=== PATIENT | female | born 1930 | race Caucasian/White ===

== ENCOUNTER 2018-11-11 07:07 | Inpatient (IN) ==
--- NOTE | 2018-11-11 07:21 | Emergency Department Note ---
Disposition General Adult HPI - General Chief complaint: ED Weakness Stated complaint: doesnt feel good Time Seen by Provider: 11/11/18 07:18 Source: patient Mode of arrival: EMS Nursing Notes Reviewed: Yes Vital Signs Reviewed: Yes - History of Present Illness Onset (ago): day(s) (3) Pain Scale: 0 - Related Data Home Medications Medication Instructions Recorded Confirmed Atenolol [Tenormin] 50 mg PO DAILY 01/01/16 07/13/16 Levothyroxine [Synthroid] 25 mcg PO DAILY 01/01/16 07/13/16 Pravastatin Sodium [Pravachol] 20 mg PO HS 01/01/16 07/13/16 Sitagliptin Phosphate [Januvia] 50 mg PO DAILY 01/01/16 07/13/16 amLODIPine [Norvasc] 5 mg PO DAILY 01/01/16 07/13/16 hydroCHLOROthiazide 25 mg PO DAILY 01/01/16 07/13/16 [Hydrochlorothiazide] Donepezil HCl [Aricept] 5 mg PO BID 07/13/16 07/13/16 traMADol [Ultram] 50 mg PO TID PRN 07/13/16 07/13/16 Januvia 04/17/18 Losartan 04/17/18 Melatonin 04/17/18 Toprol Xl 04/17/18 Previous Rx's Medication Instructions Recorded Omeprazole [PriLOSEC] 40 mg PO BIDAC #60 capsule.dr 07/16/16 Sucralfate [Carafate] 1 gm PO QIDAC #120 tablet 07/16/16 Capsaicin [Zostrix] 56.6 gm TP TID PRN #1 cream..g. 11/27/16 Cetirizine HCl [Zyrtec] 10 mg PO DAILY #5 capsule 11/27/16 Ibuprofen [Motrin] 800 mg PO Q8HR #30 tablet 08/27/17 Tramadol HCl [Ultram] 50 mg PO TID PRN #9 tab 08/27/17 hydrOXYzine pamoate [HydrOXYzine 25 mg PO TID PRN #30 capsule 04/17/18 Pamoate] methylPREDNISolone [Medrol] 4 mg PO TAPER #21 tablet 04/17/18 Allergies Allergy/AdvReac Type Severity Reaction Status Date / Time lisinopril AdvReac Cough Verified 11/09/18 17:07 Past Medical History - Past Medical History Medical history: Reports: diabetes, hypertension Surgical history: Reports: appendectomy, hysterectomy, knee replacement, pacemaker/AICD, other Psychiatric history: Reports: no psych history SMALL ANIMAL CARETAKER history: Reports: no SMALL ANIMAL CARETAKER history - Social History Smoking Status: Never smoker Smokeless Tobacco Status: No Alcohol use: Reports: none Drug use: Reports: none Physical Exam - General General appearance: alert Course Vital Signs Temperature 97.6 F 11/11/18 07:12 Pulse Rate 65 11/11/18 07:12 Respiratory Rate 16 11/11/18 07:12 Blood Pressure 177/80 11/11/18 07:12 O2 Sat by Pulse Oximetry 98 11/11/18 07:12 Temperature 97.6 F 11/11/18 07:12 Pulse Rate 65 11/11/18 07:12 Respiratory Rate 16 11/11/18 07:12 Blood Pressure 177/80 11/11/18 07:12 O2 Sat by Pulse Oximetry 98 11/11/18 07:12 Oxygen Delivery Oxygen Delivery Room Air
--- NOTE | 2018-11-11 07:36 | Emergency Department Note ---
Disposition Clinical Impression: Hyponatremia Failure to thrive Qualifiers: Failure to thrive age range: in adult Qualified Code(s): R62.7 - Adult failure to thrive Disposition: Admitted As Inpatient Condition: Fair Forms: ED Satisfaction Letter General Adult HPI - General Chief complaint: ED Weakness Stated complaint: doesnt feel good Time Seen by Provider: 11/11/18 07:18 Source: patient Mode of arrival: EMS - History of Present Illness HPI Narrative: 87 year female with history of hypertension and diabetes presents with generalized weakness. This is the third time visiting ER in the past three days. Pt stated she lives by herself. She didn't have enough food to eat in the past one week. She felt hungry, generalized weakness, and scared. Pt couldn't remember what medication she is taking. Pt stated she might not survive if she goes home like this. Pt had normal labs, unremarkable EKG, head CT, head CTA, chest CTA and abdomen CT in the last two visits. Pt couldn't remember when her . Pt denied visual and auditory hallucination. Pt denied suicidal thought. Onset (ago): day(s) (3) Pain Scale: 0 - Related Data Home Medications Medication Instructions Recorded Confirmed Atenolol [Tenormin] 50 mg PO DAILY 01/01/16 07/13/16 Levothyroxine [Synthroid] 25 mcg PO DAILY 01/01/16 07/13/16 Pravastatin Sodium [Pravachol] 20 mg PO HS 01/01/16 07/13/16 Sitagliptin Phosphate [Januvia] 50 mg PO DAILY 01/01/16 07/13/16 amLODIPine [Norvasc] 5 mg PO DAILY 01/01/16 07/13/16 hydroCHLOROthiazide 25 mg PO DAILY 01/01/16 07/13/16 [Hydrochlorothiazide] Donepezil HCl [Aricept] 5 mg PO BID 07/13/16 07/13/16 traMADol [Ultram] 50 mg PO TID PRN 07/13/16 07/13/16 Januvia 04/17/18 Losartan 04/17/18 Melatonin 04/17/18 Toprol Xl 04/17/18 Previous Rx's Medication Instructions Recorded Omeprazole [PriLOSEC] 40 mg PO BIDAC #60 capsule. 07/16/16 Sucralfate [Carafate] 1 gm PO QIDAC #120 tablet 07/16/16 Capsaicin [Zostrix] 56.6 gm TP TID PRN #1 cream..g. 11/27/16 Cetirizine HCl [Zyrtec] 10 mg PO DAILY #5 capsule 11/27/16 Ibuprofen [Motrin] 800 mg PO Q8HR #30 tablet 08/27/17 Tramadol HCl [Ultram] 50 mg PO TID PRN #9 tab 08/27/17 hydrOXYzine pamoate [HydrOXYzine 25 mg PO TID PRN #30 capsule 04/17/18 Pamoate] methylPREDNISolone [Medrol] 4 mg PO TAPER #21 tablet 04/17/18 Allergies Allergy/AdvReac Type Severity Reaction Status Date / Time lisinopril AdvReac Cough Verified 11/09/18 17:07 Constitutional: Denies: fever, chills Eyes: Denies: eye pain ENT ED: Denies: ear pain Cardiovascular: Denies: chest pain Respiratory: Denies: cough, dyspnea Gastrointestinal: Denies: abdominal pain Genitourinary: Denies: urgency Musculoskeletal: Denies: back pain Integumentary: Denies: rash Neurological: Denies: headache Psychiatric: Denies: anxiety Endocrine: Denies: fatigue Hematological/Lymphatic: Denies: easy bleeding Allergic/Immunologic: Denies: facial swelling Past Medical History - Past Medical History Medical history: Reports: diabetes, hypertension Surgical history: Reports: appendectomy, hysterectomy, knee replacement, pacemaker/AICD, other Psychiatric history: Reports: no psych history GROUT WORKER history: Reports: no GROUT WORKER history - Social History Smoking Status: Never smoker Smokeless Tobacco Status: No Alcohol use: Reports: none Drug use: Reports: none Physical Exam - General General appearance: alert - Head Head exam: atraumatic - Eye Eye exam: Present: normal appearance - ENT ENT exam: normal exam - Neck Neck exam: Present: normal inspection - Chest Chest inspection: Present: normal inspection - Respiratory Respiratory exam: Present: normal lung sounds bilaterally. Absent: respiratory distress, wheezes - Cardiovascular Cardiovascular exam: Present: regular rate - Abdominal Exam Abdominal exam: Present: soft, Non-Tender - Extremities Exam Extremities exam: Present: normal inspection, full ROM. Absent: tenderness - Back Exam Back exam: Present: normal inspection, full ROM - Neurological Exam Neurological exam: Present: alert, oriented X3 - Psychiatric Psychiatric exam: Present: normal affect, normal mood - Skin Skin exam: Present: warm, intact Course Vital Signs Temperature 97.6 F 11/11/18 07:12 Pulse Rate 65 11/11/18 07:12 Respiratory Rate 16 11/11/18 07:12 Blood Pressure 177/80 11/11/18 07:12 O2 Sat by Pulse Oximetry 98 11/11/18 07:12 Temperature 97.6 F 11/11/18 07:12 Pulse Rate 65 11/11/18 07:12 Respiratory Rate 16 11/11/18 07:12 Blood Pressure 177/80 11/11/18 07:12 O2 Sat by Pulse Oximetry 98 11/11/18 07:12 Oxygen Delivery Oxygen Delivery Room Air Medical Decision Making - MDM Narrative Medical decision making narrative: 87 year female lives along presents with generalized weakness and difficulty taking care of herself. This is her third visit of ER in the past three days. Pt had unremarkable cts and labs. physical exam: alert and oriented, but part memory loss, no other focal neurology deficit. Dr. Ho has seen the patient and agrees to admit pt for social work therapist. Spoke with Dr. Dye. Pt is accepted. - Lab Data Lab results reviewed: Yes I reviewed the patient's lab results. Result diagrams: 11/11/18 07:48 Lab Results 11/11/18 Range/Units 07:48 Sodium 123 L (136-145) mEq/L Potassium 3.5 (3.5-5.1) mEq/L Chloride 92 L (98-107) mEq/L Carbon Dioxide 28 (23-29) mEq/L BUN 13 (8-23) mg/dL Creatinine 0.57 L (0.60-1.20) mg/dL Est GFR ( Amer) > 60 (> 60) Est GFR (Non-Af Amer) > 60 (> 60) BUN/Creatinine Ratio 23 (6-26) Glucose 260 H (70-105) mg/dL Calculated Osmolality 265 L (280-300) Calcium 9.5 (8.6-10.3) mg/dL
--- NOTE | 2018-11-11 07:57 | Emergency Department Note ---
Disposition Clinical Impression: Failure to thrive Qualifiers: Failure to thrive age range: in adult Qualified Code(s): R62.7 - Adult failure to thrive Disposition: Admitted As Inpatient Forms: ED Satisfaction Letter General Adult HPI - General Chief complaint: ED Weakness Stated complaint: doesnt feel good Time Seen by Provider: 11/11/18 07:18 Source: patient Mode of arrival: EMS Nursing Notes Reviewed: Yes Vital Signs Reviewed: Yes - History of Present Illness HPI Narrative: ED ATTESTATION NOTE: I examined this patient and my medical decision-making was reviewed with the Resident Physician/LEGISLATIVE DIRECTOR/PA/Student. I have personally performed a face to face evaluation on this patient & I agree with the documented findings, disposition and treatment plan as described except to the extent set forth below. Patient was seen with physician wet process miller head assistant EDWARD COLBERT, please see copy of her note for details of this encounter Briefly: 87-year-old female by EMS for "vomiting diarrhea and weakness". Evaluated by Chris Sargent, perform CT angiogram of the chest and abdominal pelvic area which aside from showing some gallstones was otherwise negative patient had complete laboratory analysis just yesterday states that she is here physical examination is otherwise unremarkable no new trauma she is afebrile with stable vital signs a BNP is being obtained and patient will be admitted for failure to thrive. Disposition pending Pain Scale: 0 - Related Data Home Medications Medication Instructions Recorded Confirmed Atenolol [Tenormin] 50 mg PO DAILY 01/01/16 07/13/16 Levothyroxine [Synthroid] 25 mcg PO DAILY 01/01/16 07/13/16 Pravastatin Sodium [Pravachol] 20 mg PO HS 01/01/16 07/13/16 Sitagliptin Phosphate [Januvia] 50 mg PO DAILY 01/01/16 07/13/16 amLODIPine [Norvasc] 5 mg PO DAILY 01/01/16 07/13/16 hydroCHLOROthiazide 25 mg PO DAILY 01/01/16 07/13/16 [Hydrochlorothiazide] Donepezil HCl [Aricept] 5 mg PO BID 07/13/16 07/13/16 traMADol [Ultram] 50 mg PO TID PRN 07/13/16 07/13/16 Januvia 04/17/18 Losartan 04/17/18 Melatonin 04/17/18 Toprol Xl 04/17/18 Previous Rx's Medication Instructions Recorded Omeprazole [PriLOSEC] 40 mg PO BIDAC #60 capsule. 07/16/16 Sucralfate [Carafate] 1 gm PO QIDAC #120 tablet 07/16/16 Capsaicin [Zostrix] 56.6 gm TP TID PRN #1 cream..g. 11/27/16 Cetirizine HCl [Zyrtec] 10 mg PO DAILY #5 capsule 11/27/16 Ibuprofen [Motrin] 800 mg PO Q8HR #30 tablet 08/27/17 Tramadol HCl [Ultram] 50 mg PO TID PRN #9 tab 08/27/17 hydrOXYzine pamoate [HydrOXYzine 25 mg PO TID PRN #30 capsule 04/17/18 Pamoate] methylPREDNISolone [Medrol] 4 mg PO TAPER #21 tablet 04/17/18 Allergies Allergy/AdvReac Type Severity Reaction Status Date / Time lisinopril AdvReac Cough Verified 11/09/18 17:07 Constitutional: Denies: fever, chills Eyes: Denies: eye pain ENT ED: Denies: ear pain Cardiovascular: Denies: chest pain Respiratory: Denies: cough, dyspnea Gastrointestinal: Denies: abdominal pain Genitourinary: Denies: urgency Musculoskeletal: Denies: back pain Integumentary: Denies: rash Neurological: Denies: headache Psychiatric: Denies: anxiety Endocrine: Denies: fatigue Hematological/Lymphatic: Denies: easy bleeding Allergic/Immunologic: Denies: facial swelling Past Medical History - Past Medical History Medical history: Reports: diabetes, hypertension Surgical history: Reports: appendectomy, hysterectomy, knee replacement, pacemaker/AICD, other Psychiatric history: Reports: no psych history STREETSWEEPER OPERATOR history: Reports: no STREETSWEEPER OPERATOR history - Social History Smoking Status: Never smoker Smokeless Tobacco Status: No Alcohol use: Reports: none Drug use: Reports: none Physical Exam - General General appearance: alert Course Vital Signs Temperature 97.6 F 11/11/18 07:12 Pulse Rate 65 11/11/18 07:12 Respiratory Rate 16 11/11/18 07:12 Blood Pressure 177/80 11/11/18 07:12 O2 Sat by Pulse Oximetry 98 11/11/18 07:12 Temperature 97.6 F 11/11/18 07:12 Pulse Rate 65 11/11/18 07:12 Respiratory Rate 16 11/11/18 07:12 Blood Pressure 177/80 11/11/18 07:12 O2 Sat by Pulse Oximetry 98 11/11/18 07:12 Oxygen Delivery Oxygen Delivery Room Air
[2018-11-11 08:31] LABS: BUN/Creatinine Ratio 23 (6-26); Blood Urea Nitrogen 13 mg/dL (8-23); Calcium 9.5 mg/dL (8.6-10.3); Carbon Dioxide 28 mEq/L (23-29); Chloride 92 mEq/L (98-107); Glucose 260 mg/dL (70-105); Osmolality,Calculated 265 (280-300); Potassium 3.5 mEq/L (3.5-5.1); Sodium 123 mEq/L (136-145); eGFR For Non-African Americans > 60 (> 60)
[2018-11-11] MEDS ORDERED: 0.9 % Sodium Chloride 500 ML IVC ONE (08:45)
[2018-11-11] MEDS ORDERED: Ondansetron 4 MG/2 ML VIAL IVP PRN (09:06)
[2018-11-11] MEDS ORDERED: Naloxone 0.4 MG/ML INJ IVP PRN (09:06)
--- NOTE | 2018-11-11 09:13 | Internal Med History&Physical ---
Date of Encounter: 11/11/18 Time of Encounter: 08:45 Internal Medicine - H&P: HPI Chief complaint: "I don't feel good", failure to thrive Admitted From: Home History of present illness: Ms. Rico is a 87 year old female history of dementia, hypothyroidism, hypertension, diabetes, presented to the ED for the 3rd time due to various complaints. Started with headache on 11/[address] head as well as CTA of head and neck which were unremarkable. Then, she presented for vomiting and dehydration on 11/10 at which time she has had CT T/A/P which were again unremarkable. Patient presented to the ED again today and this time her c hief complaint was that of "I don't feel good" but denied any focal complaints including chest pain, shortness of breath, palpitation, cough, sputum production, abdominal pain, dysuria, change in bowel habits, orthopnea, PND, or LE Swelling. She is alert and oriented 3. Only issues that she is currently having is that she wants the light off and wants her food hot. Otherwise she was afebrile and hemodynamically stable. One abnormality that was noted on her lab is progressively worsening hyponatremia of 123. She was given 500ml normal saline bolus in the ED and admitted for further management. Past Med Surg Social Fam HX - Past Medical History Medical history: diabetes, hypertension, thyroid disease Psychiatric history: no psych history - Past Surgical History Surgical History: appendectomy, hysterectomy, knee replacement, pacemaker/AICD, other Additional surgical history: tonsils,rt wrist. SEPTOPLASTY. right knee - Social History Smoking Status: Never smoker Smokeless Tobacco Status: No Alcohol use: none Drug use: none - Family History Mother Living Status: Hx Family Cardiac Disorders: Yes (HTN) Hx Family Endocrine Disorder: Yes Father Living Status: Hx Family Cancer: Yes (prostate cancer) Internal Medicine - H&P: Meds Atenolol [Tenormin] 50 mg PO DAILY 01/01/16 [History] Levothyroxine [Synthroid] 25 mcg PO DAILY 01/01/16 [History] Pravastatin Sodium [Pravachol] 20 mg PO HS 01/01/16 [History] Sitagliptin Phosphate [Januvia] 50 mg PO DAILY 01/01/16 [History] amLODIPine [Norvasc] 5 mg PO DAILY 01/01/16 [History] hydroCHLOROthiazide [Hydrochlorothiazide] 25 mg PO DAILY 01/01/16 [History] Donepezil HCl [Aricept] 5 mg PO BID 07/13/16 [History] traMADol [Ultram] 50 mg PO TID PRN 07/13/16 [History] Omeprazole [PriLOSEC] 40 mg PO BIDAC #60 capsule.dr 07/16/16 [Rx] Sucralfate [Carafate] 1 gm PO QIDAC #120 tablet 07/16/16 [Rx] Capsaicin [Zostrix] 56.6 gm TP TID PRN #1 cream..g. 11/27/16 [Rx] Cetirizine HCl [Zyrtec] 10 mg PO DAILY #5 capsule 11/27/16 [Rx] Ibuprofen [Motrin] 800 mg PO Q8HR #30 tablet 08/27/17 [Rx] Tramadol HCl [Ultram] 50 mg PO TID PRN #9 tab 08/27/17 [Rx] Januvia 04/17/18 [History] Losartan 04/17/18 [History] Melatonin 04/17/18 [History] Toprol Xl 04/17/18 [History] hydrOXYzine pamoate [HydrOXYzine Pamoate] 25 mg PO TID PRN #30 capsule 04/17/18 [Rx] methylPREDNISolone [Medrol] 4 mg PO TAPER #21 tablet 04/17/18 [Rx] Allergy/AdvReac Type Severity Reaction Status Date / Time lisinopril AdvReac Cough Verified 11/09/18 17:07 All Systems PM: A 10-system review of systems was performed and is negative for pertinent findings except as documented above in the HPI. - Constitutional Vitals: Temp Pulse Resp BP Pulse Ox 97.6 F 65 16 177/80 98 11/11/18 07:12 11/11/18 07:12 11/11/18 07:12 11/11/18 07:12 11/11/18 07:12 Exam: General: Alert and oriented x 3 , not in acute distress. HEENT:EOMI, pupils equal, round and reactive. Cardiovascular:Normal S1 & S2, No JVD. Pulse regular. Lungs: clear to auscultation, no wheezes/rales Abdomen:Soft, non-tender, no rigidity. Extremities:No deformity or swelling Neurological: Grossly nonfocal, no facial droop or slurring of speech. Babinski downgoing bilaterally. Moving all 4 limbs spontaneously without difficulty Skin:Normal color, no rash, no lesions. Pulses:Carotid and radial pulses normal +2. Rest of the physical exam is non contributory Internal Med - H&P Results - Labs CBC & Chem 7: 11/11/18 07:48 Labs: BMP 11/11/18 07:48 Sodium 123 L Potassium 3.5 Chloride 92 L Carbon Dioxide 28 BUN 13 Creatinine 0.57 L Glucose 260 H Calcium 9.5 - Assessment and Plan (1) Hyponatremia Current Visit: Yes Status: Acute Assessment and plan: Sodium trend has been [id number] over the last 3 days, associated with poor or al intake and failure to thrive as below was given 500ml NS bolus in the ED repeat BMP at 2pm and will decide on further mx whether to administer IVF vs. fluid restrict as it current appears to be hypovolemic hyponatremia but SIADH is a possibility (2) Failure to thrive Current Visit: Yes Status: Chronic Assessment and plan: extensive workup as outlined in HPI since 11/09, 3 ED visits check B12, folate, TSH, urinalysis PT/OT social work consult Qualifiers: Failure to thrive age range: in adult Qualified Code(s): R62.7 - Adult failure to thrive (3) Hypothyroid Current Visit: Yes Status: Chronic Assessment and plan: check TSH as above resume levothyroxine once reconciled Qualifiers: Hypothyroidism type: unspecified Qualified Code(s): E03.9 - Hypothyroidism, unspecified (4) Dementia Current Visit: No Status: Chronic Assessment and plan: mx per failure to thrive as above PT/OT/SW consult Qualifiers: Dementia type: unspecified type Dementia behavioral disturbance: without behavioral disturbance Qualified Code(s): F03.90 - Unspecified dementia without behavioral disturbance (5) Diabetes mellitus, type 2 Current Visit: No Status: Chronic Assessment and plan: Low-dose sliding scale with ADA diet Qualifiers: Diabetes mellitus retirement insulin use: without roll tube setter use Diabetes mellitus complication status: without complication Qualified Code(s): E11.9 - Type 2 diabetes mellitus without complications (6) Essential hypertension Current Visit: No Status: Chronic Assessment and plan: resume home meds once reconciled PRN labetalol (7) DVT prophylaxis Current Visit: Yes Status: Acute Assessment and plan: SQ heparin - Time Spent With Patient Total time spent is greater than 50% in coordination of care (as documented) at patient's floor/unit and/or counseling patient: 25 - 35 minutes
[2018-11-11] MEDS ORDERED: amLODIPine 5 MG TABLET PO SCH (09:15)
[2018-11-11] MEDS ORDERED: D5% in Water 1,000 ML IVC PRN (09:19)
[2018-11-11] MEDS ORDERED: Dextrose Gel 15 GM/37.5 ML TUBE PO PRN ×2 (09:19)
[2018-11-11] MEDS ORDERED: Dextrose 4 GM Chewable Tablets PO PRN ×2 (09:19)
[2018-11-11] MEDS ORDERED: *HR* Dextrose 50 % in Water (Syg) 50 ML SYRINGE IVP PRN (09:19)
[2018-11-11 10:11] LABS: Thyroid Stimulating Hormone 1.955 mcIU/mL (0.340-5.600)
[2018-11-11 10:41] LABS: Folate > 22.3 ng/mL (3.0-16.0); Vitamin B12 338 pg/mL (250-1100)
[2018-11-11] MEDS ORDERED: Acetaminophen 325 MG TABLET PO PRN (11:12)
[2018-11-11] MEDS: Insulin LISPRO 300 UNITS/3 ML VIAL SQ SCH ×3 (12:37→20:48)
[2018-11-11 12:55] LABS: Adenovirus Not Detected (Not Detect); Bordetella Pertussis Not Detected (Not Detect); Chlamydophila pneumoniae Not Detected (Not Detect); Coronavirus 229E Not Detected (Not Detect); Coronavirus HKU1 Not Detected (Not Detect); Coronavirus NL63 Not Detected (Not Detect); Coronavirus OC43 Not Detected (Not Detect); Human Metapneumovirus Not Detected (Not Detect); Human Rhinovirus/Enterovirus Not Detected (Not Detect); Influenza A Subtype 2009 H1 Not Detected (Not Detect); Influenza A Untypeable Not Detected (Not Detect); Influenza B Not Detected (Not Detect); Mycoplasma pneumoniae Not Detected (Not Detect); Parainfluenza Virus 1 Not Detected (Not Detect); Parainfluenza Virus 2 Not Detected (Not Detect); Parainfluenza Virus 3 Not Detected (Not Detect); Parainfluenza Virus 4 Not Detected (Not Detect); Respiratory Syncytial Virus Not Detected (Not Detect)
[2018-11-11] MEDS ORDERED: SUMAtriptan succinate 25 MG TABLET PO ONE ×2 (13:45→18:31)
[2018-11-11 16:21] LABS: Bilirubin,Urine Negative (Negative); Blood,Urine Negative (Negative); Clarity,Urine Clear (Clear); Color,Urine Yellow (Yellow); Glucose,Urine (UA) >=1000 mg/dL (Normal); Ketones,Urine Negative (Negative); Leukocyte Esterase,Urine Negative (Negative); Nitrite,Urine Negative (Negative); Protein,Urine 100 mg/dL (Neg-Trace); Specific Gravity,Urine 1.026 (1.010-1.025); Urobilinogen,Urine Normal (Normal)
[2018-11-11 16:23] LABS: Bacteria,Urine None Seen per hpf (None-Few); Hyaline Casts,Urine None Seen per lpf (None-Few); Squamous Epithelial Cell,Urine Many per lpf (None-Few); WBC,Urine 0-3 per hpf (0-3)
[2018-11-11] MEDS: *HR* Labetalol 20 MG/4 ML SYRINGE IVP PRN (16:26)
[2018-11-11 16:55] LABS: BUN/Creatinine Ratio 23 (6-26); Blood Urea Nitrogen 14 mg/dL (8-23); Calcium 9.3 mg/dL (8.6-10.3); Carbon Dioxide 28 mEq/L (23-29); Chloride 90 mEq/L (98-107); Glucose 129 mg/dL (70-105); Osmolality,Calculated 264 (280-300); Potassium 3.3 mEq/L (3.5-5.1); Sodium 126 mEq/L (136-145); eGFR For Non-African Americans > 60 (> 60)
[2018-11-11] MEDS ORDERED: 0.9 % Sodium Chloride w KCl 40 MEQ/1,000 ML MLS IVC SCH (18:00)
[2018-11-11] MEDS: *HR* Heparin 5,000 UNIT/ML VIAL SQ SCH (18:22)
[2018-11-11] MEDS ORDERED: Acetaminophen/Butalbital/CaffeineTABLET PO ONE (20:13)
[2018-11-11 21:49] LABS: BUN/Creatinine Ratio 25 (6-26); Blood Urea Nitrogen 14 mg/dL (8-23); Calcium 9.3 mg/dL (8.6-10.3); Carbon Dioxide 25 mEq/L (23-29); Chloride 92 mEq/L (98-107); Glucose 193 mg/dL (70-105); Osmolality,Calculated 262 (280-300); Potassium 3.4 mEq/L (3.5-5.1); Sodium 123 mEq/L (136-145); eGFR For Non-African Americans > 60 (> 60)
[2018-11-11] MEDS ORDERED: Gadolinium Contrast Agent (WT Based) IV PRN (22:11)
[2018-11-11] MEDS ORDERED: *HR* OxyCODONE Immed Rel 5 MG TABLET PO ONE (22:36)
--- NOTE | 2018-11-11 23:35 | Event Note ---
Date of Encounter: 11/11/18 Time of Encounter: 19:39 Alerted by patient's nurse BERTA Esqueda the patient was experiencing 10 out of 10 pain in her head which she stated could not possibly get worse. Patient and daughter were asking to have patient's had scanned, concern for possible aneurysm. Reviewed patient's chart which showed CT of the head without contrast on 11/09 showed no acute intracranial hemorrhage, mass effect, or midline shift. No abnormal extra-axial fluid collection. Patchy periventricular and subcortical white matter hypoattenuation may reflect mild microvascular ischemic disease. No CT evidence of acute, territorial infarct. There is no evidence of hydrocephalus. Basal cisterns are patent. Intracranial atherosclerotic calcification. CTA of the head on same date showed left greater than right proximal vertebral artery narrowing as described. Short segmental narrowing of the proximal right internal carotid artery measuring less than 30%. No significant arterial narrowing in the neck otherwise noted. No focal significant intracranial arterial narrowing is noted. There is no aneurysm. Went to see patient immediately to discuss imaging results with patient and daughter. Patient in bed reporting 10 out of 10 pain to left side of her head and face. Pain with palpation. Patient denies history of migraine. Patient was given Imitrex earlier in the day which helped briefly. Fioricet ordered to see if symptoms resolve. Due to worsening and severe nature of pain, concern for possible giant cell arteritis so CRP and ESR ordered. ESR 29, CRP less than 5. Order for stat MRI of the head/brain placed. I was informed I would need to call [facility] to have MRI done stat. Spoke with Dr. Chester who suggested CT without contrast to assess for aneurysmal bleeding. Informed Dr. Chester there was no aneurysm according to CT and CTA results. Dr. Chester approved MRI. Prescreening paperwork completed by patient's nurse and faxed to radiology. Informed by radiology MRI would not be done until Tuesday due to patient's pacer needing verification. In the meantime, patient continues to report 10 out of 10 pain to left side of head with little to no relief. Fioricet helped briefly. 10 mg oxycodone immediate release ordered to help control patient's pain for now. Instructed nurse to continue monitoring patient very closely and notify me immediately of any adverse changes.
[2018-11-12] MEDS ORDERED: Acetaminophen/Butalbital/CaffeineTABLET PO SCH ×2 (00:48→04:00)
[2018-11-12] MEDS: Acetaminophen/Butalbital/CaffeineTABLET PO SCH ×6 (01:26→20:39)
[2018-11-12] MEDS: SUMAtriptan succinate 25 MG TABLET PO PRN ×2 (03:55→21:59)
[2018-11-12 04:07] LABS: Hematocrit 34.7 % (35.3-44.9); Hemoglobin 12.2 g/dL (11.5-15.4); Mean Corpuscular HGB Conc 35.2 g/dL (31.6-35.5); Mean Corpuscular Hemoglobin 31.3 pg (28.0-33.3); Mean Platelet Volume 10.5 fL (9.4-12.4); Platelet Count 234 K/mcL (140-400); Red Cell Distribution Width 12.6 % (11.5-14.5)
[2018-11-12 04:23] LABS: Alanine Aminotransferase 15 Units/L (7-52); Albumin 3.8 g/dL (3.5-5.7); Albumin/Globulin Ratio 1.4 (1.1-2.2); Alkaline Phosphatase 74 Units/L (34-104); Aspartate Amino Transferase 21 Units/L (13-39); BUN/Creatinine Ratio 23 (6-26); Bilirubin,Total 0.5 mg/dL (0.3-1.0); Blood Urea Nitrogen 13 mg/dL (8-23); Carbon Dioxide 26 mEq/L (23-29); Chloride 93 mEq/L (98-107); Globulin 2.8 g/dL (2.4-3.5); Glucose 174 mg/dL (70-105); Magnesium 1.5 mg/dL (1.6-2.6); Osmolality,Calculated 268 (280-300); Potassium 3.5 mEq/L (3.5-5.1); Sodium 127 mEq/L (136-145); Total Protein 6.6 g/dL (6.4-8.9); eGFR For Non-African Americans > 60 (> 60)
[2018-11-12] MEDS: *HR* Heparin 5,000 UNIT/ML VIAL SQ SCH (05:39)
[2018-11-12] MEDS: Levothyroxine 25 MCG TABLET PO SCH (05:39)
[2018-11-12 07:24] LABS: Estimated Average Glucose 197 mg/dl; Hemoglobin A1C 8.5 %
[2018-11-12] MEDS ORDERED: hydroCHLOROthiazide 25 MG TABLET PO SCH (09:00)
[2018-11-12] MEDS: Insulin LISPRO 300 UNITS/3 ML VIAL SQ SCH ×4 (09:26→20:40)
[2018-11-12] MEDS: Metoprolol XL (24 HR) Succ 50 MG TAB.ER.24H PO SCH (09:27)
[2018-11-12] MEDS: amLODIPine 5 MG TABLET PO SCH (09:27)
[2018-11-12] MEDS ORDERED: Acyclovir 500 MG in D5% in Water 100 ML IVPB ONE (11:59)
[2018-11-12] MEDS ORDERED: SUMAtriptan 6 MG/0.5 ML SQ STA (12:01)
[2018-11-12] MEDS ORDERED: Dexamethasone 10 MG/ML VIAL IVP STA (12:12)
[2018-11-12] MEDS ORDERED: Metoclopramide 10 MG in 0.9 % Sodium Chloride 50 ML IVPB STA (12:12)
--- NOTE | 2018-11-12 13:19 | Internal Med Progress Note ---
Hospitalist Progress Note - Encounter Date of Encounter: 11/12/18 Time of Encounter: 13:12 - Exam Vitals: Temp Pulse Resp BP Pulse Ox 98.1 F 61 17 144/80 95 11/12/18 11:43 11/12/18 11:43 11/12/18 11:43 11/12/18 11:43 11/12/18 11:43 Exam: General: Alert and leathrgic, holding her head up and c/o of the light hurts her eyes HEENT:EOMI, pupils equal, round and reactive. Cardiovascular:Normal S1 & S2, No JVD. Pulse regular. Lungs: clear to auscultation, no wheezes/rales Abdomen:Soft, non-tender, no rigidity. Extremities:No deformity or swelling Neurological: Grossly nonfocal, no facial droop or slurring of speech. Babinski downgoing bilaterally. Moving all 4 limbs spontaneously without difficulty Skin:Normal color, no rash, no lesions. 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 The CT had been negative, we are in the process of getting the MRI. Bacterial mengititis is unlikley given her neck is very soft, and no fever, no WBC elevation Ddx: migraine vs. hemicrania vs. SUNCT vs. cluster headahce --will ask neurology to see the pt 2) shingles with possible but unlikley PERIOPERATIVE EDUCATOR invovlement will start the pt on acyclori Radiologist I talked to, pt is at high risk given palvix, it will has to be done after 7 days of holding it 3) deblity: Will need PT/OT to evlaute 4) code: Full 5) dispo: We dont' have ergotamine here, I am trying to use trptan, dexa, reglan to see if we treat the migraine, it will go away. I really dout the shingles is giving the pt the headhace. We will see what neurolgoy thinks. Time: 45 min - Time Spent with Patient Total time spent is greater than 50% in coordination of care (as documented) at patient's floor/unit and/or counseling patient: Internal Medicine: Result - Labs CBC & Chem 7: 11/12/18 03:41 11/12/18 03:41 Labs: Short CBC 11/12/18 Range/Units 03:41 WBC 8.0 (4.3-11.1) K/mcL Hgb 12.2 (11.5-15.4) g/dL Hct 34.7 L (35.3-44.9) % Plt Count 234 (140-400) K/mcL BMP 11/11/18 11/11/18 11/12/18 16:13 21:20 03:41 Sodium 126 L 123 L 127 L Potassium 3.3 L 3.4 L 3.5 Chloride 90 L 92 L 93 L Carbon Dioxide 28 25 26 BUN 14 14 13 Creatinine 0.61 0.56 L 0.57 L Glucose 129 H 193 H 174 H Calcium 9.3 9.3 9.0 Liver Function 11/12/18 Range/Units 03:41 Total Bilirubin 0.5 (0.3-1.0) mg/dL AST 21 (13-39) Units/L ALT 15 (7-52) Units/L Alkaline Phosphatase 74 (34-104) Units/L Albumin 3.8 (3.5-5.7) g/dL Urine 11/11/18 Range/Units 16:10 Urine Color Yellow (Yellow) Urine Clarity Clear (Clear) Urine pH 7.0 (5.0-8.0) pH Units Ur Specific [place] 1.026 H (1.010-1.025) Urine Protein 100 H (Neg-Trace) mg/dL Urine Glucose (UA) >=1000 H (Normal) mg/dL Consult Discharge Plan - Plan Referrals: NONE,PCP [Primary Care Provider] -
[2018-11-12] MEDS ORDERED: 0.9 % Sodium Chloride 1,000 ML IVC ONE (18:08)
[2018-11-12] MEDS ORDERED: SUMAtriptan 6 MG/0.5 ML SQ ONE (18:35)
[2018-11-12] MEDS: Acyclovir 500 MG in D5% in Water 100 ML IVPB SCH (20:40)
[2018-11-12] MEDS ORDERED: *HR* OxyCODONE Immed Rel 5 MG TABLET PO PRN (23:40)
[2018-11-13 01:32] LABS: Basophils % 0.2 %; Hematocrit 34.4 % (35.3-44.9); Hemoglobin 12.3 g/dL (11.5-15.4); Immature Granulocytes % 0.6 % (0-4); Lymphocytes # 0.6 K/mcL (0.6-4.6); Mean Corpuscular HGB Conc 35.8 g/dL (31.6-35.5); Mean Corpuscular Hemoglobin 31.9 pg (28.0-33.3); Mean Corpuscular Volume 89.1 fL (83.0-100.0); Mean Platelet Volume 10.6 fL (9.4-12.4); Monocytes # 0.4 K/mcL (0.0-1.3); Monocytes % 5.9 %; Neutrophils # 5.2 K/mcL (1.6-8.9); Platelet Count 231 K/mcL (140-400); Red Blood Count 3.86 M/mcL (3.82-4.97); Red Cell Distribution Width 12.6 % (11.5-14.5); Segmented Neutrophils % 84.3 %
[2018-11-13] MEDS: Acetaminophen/Butalbital/CaffeineTABLET PO SCH ×6 (01:39→22:00)
[2018-11-13 01:51] LABS: Alanine Aminotransferase 18 Units/L (7-52); Albumin 3.8 g/dL (3.5-5.7); Albumin/Globulin Ratio 1.5 (1.1-2.2); Alkaline Phosphatase 70 Units/L (34-104); Aspartate Amino Transferase 21 Units/L (13-39); BUN/Creatinine Ratio 29 (6-26); Bilirubin,Total 0.4 mg/dL (0.3-1.0); Blood Urea Nitrogen 16 mg/dL (8-23); Calcium 8.8 mg/dL (8.6-10.3); Carbon Dioxide 25 mEq/L (23-29); Chloride 97 mEq/L (98-107); Globulin 2.6 g/dL (2.4-3.5); Glucose 174 mg/dL (70-105); Osmolality,Calculated 273 (280-300); Potassium 3.4 mEq/L (3.5-5.1); Sodium 129 mEq/L (136-145); Total Protein 6.4 g/dL (6.4-8.9); eGFR For Non-African Americans > 60 (> 60)
--- NOTE | 2018-11-13 04:43 | Event Note ---
Date of Encounter: 11/12/18 Time of Encounter: 19:00 While on 3NE getting report, pts. daughter stopped me to discuss her mother. Stated that her pain was recurring w/little relief. I stated that I would be watching her closely overnight and would keep a close eye on her pain mgmt. We discussed her shingles dx and daughter stated that her brother had shingles on the right side of his face and had same severe pain to the right side of his head. Awaiting VZV. Alerted by pts. nurse at 23:37 that pt. had slept briefly but was reporting pain 10 again. Reviewed pts. VS. one-time order of by mouth oxycodone immediate release 10 mg ordered with instructions to monitor patient's BP closely. In reviewing chart, noticed patient is hyponatremic. Sodium draw ordered which came back at 129, up from 127. 0.9 IV fluids ordered @ 100 mls/hr. Will re-check Na at 09:00. Nurse instructed to continue monitoring pt. closely and notify me immediately of any increasing pain or adverse changes.
[2018-11-13] MEDS ORDERED: 0.9 % Sodium Chloride 1,000 ML IVC SCH (04:45)
[2018-11-13] MEDS: Acyclovir 500 MG in D5% in Water 100 ML IVPB SCH ×3 (05:04→22:02)
[2018-11-13] MEDS: Levothyroxine 25 MCG TABLET PO SCH (05:07)
[2018-11-13] MEDS: Metoprolol XL (24 HR) Succ 50 MG TAB.ER.24H PO SCH (09:03)
[2018-11-13] MEDS: amLODIPine 5 MG TABLET PO SCH (09:03)
--- NOTE | 2018-11-13 10:28 | Neurology - Consult Note ---
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 Most likely cause of discomfort; Rec shingles tx with acyclovir, prednisone and pain management ESR mildly elevated at 29, CRP <5; consider temporal arteritis less likely 11/09 CT imaging of the head and head/neck unremarkable Unable to complete MRI d/t pacer Neuro exam is non focal and non lateralizing; no postauricular or temporal tenderness on exam Rec c/s to ID Qualifiers: Herpes zoster ocular complication detail: unspecified herpes zoster eye disease Qualified Code(s): B02.30 - Zoster ocular disease, unspecified History of Present Illness Chief complaint: headache HPI: Ms. Rico is a 87 year old female with a PMH of dementia, DM, HTN, hypothyroidism who presented on 11/11/18 for the 3rd time in a 1-week duration. Her ED evaluation on 11/09 was 4 a headache for which she had a CT of the head and CTA of head and neck on 11/09 which were unremarkable. She reports that on 11/10 with nausea, vomiting and dehydration; CT A/P negative for acute abdominal process. She presented again on 11/11 with headache and feeling generally unwell. Neurology has been consulted to evaluate for cause of headache. Per my exam this morning the patient states she is unsure of when her headache began but reports that she had it for multiple days before it finally ceased last night. Also, she is unable to describe the intensity, location or characteristics of her headache. She does have dementia per her hx and there is no family at the bedside to obtain additional history. She denies any significant headache or migraine history and per review of her home medications she does not appear to be on any migraine medications. Again, at this time her headache has resolved. However it should be mentioned that she was dx with herpes zosters on her left forehead. 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 Past Med Surg Social Fam HX - Past Medical History Medical history: diabetes, hypertension, thyroid disease Psychiatric history: no psych history - Past Surgical History Surgical History: appendectomy, hysterectomy, knee replacement, pacemaker/AICD, other Additional surgical history: tonsils,rt wrist. SEPTOPLASTY. right knee - Social History Smoking Status: Never smoker Smokeless Tobacco Status: No Alcohol use: none Drug use: none - Family History Mother Living Status: Hx Family Cardiac Disorders: Yes (HTN) Hx Family Endocrine Disorder: Yes Father Living Status: Hx Family Cancer: Yes (prostate cancer) Medications and Allergies Atenolol [Tenormin] 50 mg PO DAILY 01/01/16 [History] Levothyroxine [Synthroid] 25 mcg PO DAILY 01/01/16 [History] Pravastatin Sodium [Pravachol] 20 mg PO HS 01/01/16 [History] Sitagliptin Phosphate [Januvia] 50 mg PO DAILY 01/01/16 [History] amLODIPine [Norvasc] 5 mg PO DAILY 01/01/16 [History] hydroCHLOROthiazide [Hydrochlorothiazide] 25 mg PO DAILY 01/01/16 [History] Donepezil HCl [Aricept] 5 mg PO BID 07/13/16 [History] traMADol [Ultram] 50 mg PO TID PRN 07/13/16 [History] Omeprazole [PriLOSEC] 40 mg PO BIDAC #60 capsule. 07/16/16 [Rx] Sucralfate [Carafate] 1 gm PO QIDAC #120 tablet 07/16/16 [Rx] Capsaicin [Zostrix] 56.6 gm TP TID PRN #1 cream..g. 11/27/16 [Rx] Cetirizine HCl [Zyrtec] 10 mg PO DAILY #5 capsule 11/27/16 [Rx] Ibuprofen [Motrin] 800 mg PO Q8HR #30 tablet 08/27/17 [Rx] Tramadol HCl [Ultram] 50 mg PO TID PRN #9 tab 08/27/17 [Rx] Januvia 50 mg PO DAILY 04/17/18 [History] Losartan 04/17/18 [History] Melatonin 04/17/18 [History] Metoprolol XL (24 HR) Succ [Toprol XL] 50 mg PO DAILY 04/17/18 [History] hydrOXYzine pamoate [HydrOXYzine Pamoate] 25 mg PO TID PRN #30 capsule 04/17/18 [Rx] methylPREDNISolone [Medrol] 4 mg PO TAPER #21 tablet 04/17/18 [Rx] Atorvastatin Calcium [Lipitor] 20 mg PO DAILY 11/11/18 [History] Clopidogrel [Plavix] 75 mg PO DAILY 11/11/18 [History] Losartan [Cozaar] 50 mg PO DAILY 11/11/18 [History] Allergy/AdvReac Type Severity Reaction Status Date / Time lisinopril AdvReac Cough Verified 11/09/18 17:07 All Systems: The remainder of the systems were reviewed and are negative Review of Systems: REVIEW OF SYSTEMS GENERAL: Positive for a self limited episode of N/V, fatigue and weakness NEUROLOGIC: Negative for any visual changes, facial asymmetry, dysphagia, dysarthria, hemiparesis, hemisensory deficits, vertigo, ataxia, speech or language dysfunction, unilateral weakess or parasthesias POSITIVE: headache (has since resolved), photophobia PSYCH: Positive: agitation/irritability HEENT: Negative for any head trauma, neck trauma, neck stiffness INTEGUMENTARY: Positive for any a raised, erythamatous rash located on the left forehead, the rash is not vesicular, crusted or pruritic but she does admit to some tenderness. RHEUMATOLOGIC: Negative for any joint pains, photosensitive rashes, history of vasculitis or kidney problems. HEMATOLOGIC: Negative for any abnormal bruising, frequent infections or bleeding. Physical Examination - Vital Signs Vital Signs: Initial Vital Signs Temp Pulse Resp BP Pulse Ox 97.6 F 65 16 177/80 98 11/11/18 07:12 11/11/18 07:12 11/11/18 07:12 11/11/18 07:12 11/11/18 07:12 - Exam Exam: Examination: General Examination: *CONSTITUTIONAL: A&O to person, lethargic, no acute distress *GENERAL APPEARANCE OF PATIENT elderly female, appears generally ill *EYES: pupils equal, round, reactive to light and accommodation, conjunctiva clear; no evidence of photophobia Musculoskeletal: *GAIT AND STATION normal, with normal Romberg testing, no abnormalities such as broad base gait or spasticity *ASSESSMENT OF MUSCLE STRENGTH IN THE UPPER AND LOWER EXTREMITIES bilateral deltoid, bicep, tricep, deck hand strength, hip flexors ,anterior tibialis, dorsoflexion of the foot 5/5 *MUSCLE TONE IN THE UPPER AND LOWER EXTREMITIES normal. No abnormal movements, fasciculations or atrophy identified. Neurological: *ORIENTATION to person *RECURRENT AND REMOTE MEMORY intact *ATTENTION AND CONCENTRATION are normal; she is able to answer basic question, engages in conversation and follows commands without distraction *LANGUAGE FUNCTION no significant aphasia or dysarthia was noted. *FUND OF KNOWLEDGE unaware of current events leading up to admission *MENTAL attention span and concentration normal. *CN II optic fundi were normal, no papilledema noted. *CN III,IV, PERRLA extraocular eye movements were full, no nystagmus and no ptosis noted. *CN V shows normal sensation and jaw opens symmetrically. *CN VII shows normal facial movement symmetrically, upper and lower bilaterally. *CN VIII shows no significant hearing loss on exam *CN IX,,X palate elevated symmetrically *CN XI normal strength in the sternocleidomastoid muscles, symmetrical shoulder shrugging. *CN XII tongue protruded in the midline, with normal strength and movement. *SENSORY EXAMINATION light touch intact *REFLEXES: deep tendon reflexes are absent, no pathological reflexes were noted. *CEREBELLAR TESTING normal finger to nose, heel/knee/barfield, and tandem walk. *PAIN LEVEL 0 *RASH: Erythematous, raised rash located to the left forehead, the rash is not vesicular. Minimal crust around left orbit, not pruritic but she has tenderness to palpation in the margins of the rash; no extension of tenderness to trigeminal dermatome *EARS: No visible lesion in ear canal Results - Laboratory Findings CBC and BMP: 11/13/18 00:45 11/13/18 08:48 Abnormal lab findings: Abnormal lab results Hct 34.4 % (35.3-44.9) L 11/13/18 00:45 MCHC 35.8 g/dL (31.6-35.5) H 11/13/18 00:45 ESR 29 mm/hr (0-15) H 11/11/18 21:20 Sodium 128 mEq/L (136-145) L 11/13/18 08:48 Potassium 3.4 mEq/L (3.5-5.1) L 11/13/18 00:45 Chloride 97 mEq/L (98-107) L 11/13/18 00:45 Creatinine 0.56 mg/dL (0.60-1.20) L 11/13/18 00:45 BUN/Creatinine Ratio 29 (6-26) H 11/13/18 00:45 Glucose 174 mg/dL (70-105) H 11/13/18 00:45 POC Glucose 165 mg/dL (70-99) H 11/12/18 20:33 Hemoglobin A1c 8.5 % (-5.6) H 11/11/18 07:47 Calculated Osmolality 273 (280-300) L 11/13/18 00:45 Magnesium 1.5 mg/dL (1.6-2.6) L 11/12/18 03:41 Folate > 22.3 ng/mL (3.0-16.0) H 11/11/18 09:39 Ur Specific [place] 1.026 (1.010-1.025) H 11/11/18 16:10 Urine Protein 100 mg/dL (Neg-Trace) H 11/11/18 16:10 Urine Glucose (UA) >=1000 mg/dL (Normal) H 11/11/18 16:10 Urine Microscopic RBC 3-5 per hpf (0-3) H 11/11/18 16:10 Ur Squamous Epith Cells Many per lpf (None-Few) H 11/11/18 16:10 - Diagnostic Findings Additional findings: CT/CT head/brain wo con IMPRESSION: No acute intracranial abnormality. CT/CT angio head IMPRESSION: Left greater than right proximal vertebral artery narrowing as described. Short-segment narrowing of the proximal right internal carotid artery measuring less than 30% No significant arterial narrowing in the neck otherwise noted. No focal significant intracranial arterial narrowing is noted. There is no aneurysm. Consult Discharge Plan - Plan Referrals: NONE,PCP [Primary Care Provider] - <Chris Asher - Last Filed: 11/13/18 17:34> Date of Encounter: 11/13/18 Time of Encounter: 17:27 Assessment and Plan (1) Headache Current Visit: No Status: Acute Qualifiers: Headache type: unspecified Headache chronicity pattern: unspecified pattern Intractability: not intractable Qualified Code(s): R51 - Headache (2) Herpes zoster with ophthalmic complication Current Visit: Yes Status: Acute I agree with the assessment of TOOL ROOM MACHINIST as documented above. 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 I would recommend continuing treatment with IV acyclovir over the next day or so and then transitioning to oral therapy. I will also like to give a short trial of IV Solu-Medrol 60 mg twice a day and also aware provide her with oxycodone for pain management. Might also consider gabapentin 100 mg 3 times a day to start and then titrating up to 300 mg 3 times a day. Might also consider infectious disease consult at your discretion. Qualifiers: Herpes zoster ocular complication detail: unspecified herpes zoster eye disease Qualified Code(s): B02.30 - Zoster ocular disease, unspecified History of Present Illness HPI: Ms. Rico is an 79-year-old woman seen for neurologic consultation at the request of the hospitalist group secondary to intractable headache. The chart was reviewed and insight entirely, the patient was seen and examined. I performed a [id number] independent assessment which included history and examination. I agree with the assessment of the TOOL ROOM MACHINIST as stated above. All Systems: The remainder of the systems were reviewed and are negative Review of Systems: The balance of the systems review is negative. Physical Examination - Vital Signs Vital Signs: Initial Vital Signs Temp Pulse Resp BP Pulse Ox 97.6 F 65 16 177/80 98 11/11/18 07:12 11/11/18 07:12 11/11/18 07:12 11/11/18 07:12 11/11/18 07:12 - Exam Exam: I did perform an independent [id number] neurologic examination. Constitutional-patient appears to be in a considerable amount of discomfort. She does have photophobia. Otherwise I agree with the neurologic examination as documented above by the TOOL ROOM MACHINIST. Results - Laboratory Findings CBC and BMP: 11/13/18 00:45 11/13/18 08:48 Abnormal lab findings: Abnormal lab results Hct 34.4 % (35.3-44.9) L 11/13/18 00:45 MCHC 35.8 g/dL (31.6-35.5) H 11/13/18 00:45 ESR 29 mm/hr (0-15) H 11/11/18 21:20 Sodium 128 mEq/L (136-145) L 11/13/18 08:48 Potassium 3.4 mEq/L (3.5-5.1) L 11/13/18 00:45 Chloride 97 mEq/L (98-107) L 11/13/18 00:45 Creatinine 0.56 mg/dL (0.60-1.20) L 11/13/18 00:45 BUN/Creatinine Ratio 29 (6-26) H 11/13/18 00:45 Glucose 174 mg/dL (70-105) H 11/13/18 00:45 POC Glucose 165 mg/dL (70-99) H 11/12/18 20:33 Hemoglobin A1c 8.5 % (-5.6) H 11/11/18 07:47 Calculated Osmolality 273 (280-300) L 11/13/18 00:45 Magnesium 1.5 mg/dL (1.6-2.6) L 11/12/18 03:41 Folate > 22.3 ng/mL (3.0-16.0) H 11/11/18 09:39 Ur Specific [place] 1.026 (1.010-1.025) H 11/11/18 16:10 Urine Protein 100 mg/dL (Neg-Trace) H 11/11/18 16:10 Urine Glucose (UA) >=1000 mg/dL (Normal) H 11/11/18 16:10 Urine Microscopic RBC 3-5 per hpf (0-3) H 11/11/18 16:10 Ur Squamous Epith Cells Many per lpf (None-Few) H 11/11/18 16:10
[2018-11-13] MEDS: SUMAtriptan succinate 25 MG TABLET PO PRN (11:59)
[2018-11-13] MEDS ORDERED: Isovue-370 500 ML BOTTLE IVP ONE (12:38)
--- NOTE | 2018-11-13 14:54 | Internal Med Progress Note ---
Hospitalist Progress Note - Encounter Date of Encounter: 11/13/18 Time of Encounter: 14:51 - Subjective Interval History: Pt did not open her eyes or respond to stimuli, and I did stenral rub, then pt opened her eyes and was up set. - Exam Vitals: Temp Pulse Resp BP Pulse Ox 98.5 F 60 16 167/76 94 11/13/18 11:16 11/13/18 11:16 11/13/18 11:16 11/13/18 11:16 11/13/18 11:16 Exam: General: Alert and leathrgic, holding her head up and c/o of the light hurts he r eyes HEENT:EOMI, pupils equal, round and reactive. Cardiovascular:Normal S1 & S2, No JVD. Pulse regular. Lungs: clear to auscultation, no wheezes/rales Abdomen:Soft, non-tender, no rigidity. Extremities:No deformity or swelling Neurological: Grossly nonfocal, no facial droop or slurring of speech. Babinski downgoing bilaterally. Moving all 4 limbs spontaneously without difficulty Skin:Normal color, no rash, no lesions. 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 discussed with neurology service about it, again, I agree that there are no red flags. 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 The pt had been REFUSING To work with PT/OT, this is a difficult patient. time: 35min of NOte: NO opoids - Time Spent with Patient Total time spent is greater than 50% in coordination of care (as documented) at patient's floor/unit and/or counseling patient: Internal Medicine: Result - Labs CBC & Chem 7: 11/13/18 00:45 11/13/18 08:48 Labs: Short CBC 11/13/18 Range/Units 00:45 WBC 6.2 (4.3-11.1) K/mcL Hgb 12.3 (11.5-15.4) g/dL Hct 34.4 L (35.3-44.9) % Plt Count 231 (140-400) K/mcL Neutrophils # 5.2 (1.6-8.9) K/mcL BMP 11/13/18 11/13/18 00:45 08:48 Sodium 129 L 128 L Potassium 3.4 L Chloride 97 L Carbon Dioxide 25 BUN 16 Creatinine 0.56 L Glucose 174 H Calcium 8.8 Liver Function 11/13/18 Range/Units 00:45 Total Bilirubin 0.4 (0.3-1.0) mg/dL AST 21 (13-39) Units/L ALT 18 (7-52) Units/L Alkaline Phosphatase 70 (34-104) Units/L Albumin 3.8 (3.5-5.7) g/dL Consult Discharge Plan - Plan Referrals: NONE,PCP [Primary Care Provider] -
[2018-11-13] MEDS: Insulin LISPRO 300 UNITS/3 ML VIAL SQ SCH ×4 (15:53→22:03)
[2018-11-13] MEDS: Potassium Chloride Elixir 20 MEQ/15 ML UDC PO SCH ×2 (15:54→22:02)
[2018-11-13] MEDS: *HR* OxyCODONE Immed Rel 5 MG TABLET PO PRN (18:25)
[2018-11-13] MEDS: methylPREDNISolone 125 MG/2 ML VIAL IVP SCH (18:26)
[2018-11-14] MEDS: Acetaminophen/Butalbital/CaffeineTABLET PO SCH ×7 (01:31→20:13)
[2018-11-14] MEDS: methylPREDNISolone 125 MG/2 ML VIAL IVP SCH ×2 (06:15→17:05)
[2018-11-14] MEDS: Acyclovir 500 MG in D5% in Water 100 ML IVPB SCH ×3 (06:15→20:10)
[2018-11-14] MEDS: Levothyroxine 25 MCG TABLET PO SCH (06:15)
[2018-11-14 06:59] LABS: Basophils % 0.1 %; Hematocrit 37.4 % (35.3-44.9); Hemoglobin 12.8 g/dL (11.5-15.4); Immature Granulocytes % 0.4 % (0-4); Lymphocytes # 0.9 K/mcL (0.6-4.6); Lymphocytes % 12.8 %; Mean Corpuscular HGB Conc 34.2 g/dL (31.6-35.5); Mean Corpuscular Hemoglobin 31.1 pg (28.0-33.3); Mean Platelet Volume 10.9 fL (9.4-12.4); Monocytes # 0.6 K/mcL (0.0-1.3); Monocytes % 9.1 %; Neutrophils # 5.3 K/mcL (1.6-8.9); Platelet Count 228 K/mcL (140-400); Red Blood Count 4.11 M/mcL (3.82-4.97); Segmented Neutrophils % 77.6 %
[2018-11-14 07:24] LABS: Alanine Aminotransferase 17 Units/L (7-52); Albumin 3.7 g/dL (3.5-5.7); Albumin/Globulin Ratio 1.4 (1.1-2.2); Alkaline Phosphatase 70 Units/L (34-104); Aspartate Amino Transferase 19 Units/L (13-39); BUN/Creatinine Ratio 28 (6-26); Bilirubin,Total 0.3 mg/dL (0.3-1.0); Blood Urea Nitrogen 17 mg/dL (8-23); Calcium 8.9 mg/dL (8.6-10.3); Carbon Dioxide 25 mEq/L (23-29); Chloride 100 mEq/L (98-107); Globulin 2.7 g/dL (2.4-3.5); Glucose 129 mg/dL (70-105); Osmolality,Calculated 275 (280-300); Potassium 4.2 mEq/L (3.5-5.1); Sodium 131 mEq/L (136-145); Total Protein 6.4 g/dL (6.4-8.9); eGFR For Non-African Americans > 60 (> 60)
[2018-11-14] MEDS: Insulin LISPRO 300 UNITS/3 ML VIAL SQ SCH ×4 (07:41→20:11)
--- NOTE | 2018-11-14 08:21 | Neurology Progress Note ---
Date of Encounter: 11/14/18 Time of Encounter: 08:18 Assessment and Plan (1) Headache Current Visit: No Status: Acute Qualifiers: Headache type: unspecified Headache chronicity pattern: unspecified pattern Intractability: not intractable Qualified Code(s): R51 - Headache (2) Herpes zoster with ophthalmic complication Current Visit: Yes Status: Acute At this time patient seems to be having less discomfort. The herpetic lesions are also beginning to crust. At this juncture I feel that we can switch her over to oral acyclovir for 7 additional days of therapy along with a steroid taper. She will also likely need to be discharged on medication for pain control. Follow-up with her in my office at your discretion. 20 minutes of [id number] contact was spent with this patient which included, examination clinical assessment and coordinating care. Qualifiers: Herpes zoster ocular complication detail: unspecified herpes zoster eye dis ease Qualified Code(s): B02.30 - Zoster ocular disease, unspecified Subjective Interval history: The chart was reviewed, the patient was seen and examined with [id number]. She was sleeping upon my entering the room, and arousable to voice. She is somewhat confused but this is more than likely due to the dementia. She is not consistent with her responses to questions regarding headache and pain. Overall however I feel that her pain is improved based on her body language in the fact that she was sleeping soundly when I entered the room. Yesterday she was writhing with pain. She is somewhat dismissive this morning as well. Objective - Constitutional Vitals: Temp Pulse Resp BP Pulse Ox 98.6 F 86 14 179/86 96 11/14/18 07:22 11/14/18 07:22 11/14/18 07:22 11/14/18 07:22 11/14/18 07:22 Exam: Exam: Examination: General Examination: *CONSTITUTIONAL: A&O to person, lethargic, no acute distress *GENERAL APPEARANCE OF PATIENT elderly female, appears generally ill *EYES: pupils equal, round, reactive to light and accommodation, conjunctiva clear; no evidence of photophobia Musculoskeletal: *GAIT AND STATION normal, with normal Romberg testing, no abnormalities castañeda ch as broad base gait or spasticity *ASSESSMENT OF MUSCLE STRENGTH IN THE UPPER AND LOWER EXTREMITIES bilateral deltoid, bicep, tricep, certified ethical hacker strength, hip flexors ,anterior tibialis, dorsoflexion of the foot 5/5 *MUSCLE TONE IN THE UPPER AND LOWER EXTREMITIES normal. No abnormal movem ents, fasciculations or atrophy identified. Neurological: *ORIENTATION to person, however still somewhat confused with her responses to specific questions. At Times admits to headache, other times not. *RECURRENT AND REMOTE MEMORY intact *ATTENTION AND CONCENTRATION are normal; she is able to answer basic question, engages in conversation and follows commands without distraction *LANGUAGE FUNCTION no significant aphasia or dysarthia was noted. *FUND OF KNOWLEDGE unaware of current events leading up to admission *MENTAL attention span and concentration normal. *CN II optic fundi were normal, no papilledema noted. *CN III,IV, PERRLA extraocular eye movements were full, no nystagmus and no ptosis noted. *CN V shows normal sensation and jaw opens symmetrically. *CN VII shows normal facial movement symmetrically, upper and lower bilaterally. *CN VIII shows no significant hearing loss on exam *CN IX,,X palate elevated symmetrically *CN XI normal strength in the sternocleidomastoid muscles, symmetrical shoulder shrugging. *CN XII tongue protruded in the midline, with normal strength and movem ent. *SENSORY EXAMINATION light touch intact *REFLEXES: deep tendon reflexes are absent, no pathological reflexes were noted. *CEREBELLAR TESTING normal finger to nose, heel/knee/barfield, and tandem walk. *PAIN LEVEL 0 *RASH: Erythematous, raised rash located to the left forehead, the rash is not vesicular. Minimal crust around left orbit, not pruritic but she has tenderness to palpation in the margins of the rash; no extension of tenderness to trigeminal dermatome *EARS: No visible lesion in ear canal Results - Laboratory Findings CBC and BMP: 11/14/18 05:42 11/14/18 05:42 Abnormal lab findings: Abnormal lab results ESR 29 mm/hr (0-15) H 11/11/18 21:20 Sodium 131 mEq/L (136-145) L 11/14/18 05:42 BUN/Creatinine Ratio 28 (6-26) H 11/14/18 05:42 Glucose 129 mg/dL (70-105) H 11/14/18 05:42 POC Glucose 132 mg/dL (70-99) H 11/14/18 07:19 Hemoglobin A1c 8.5 % (-5.6) H 11/11/18 07:47 Calculated Osmolality 275 (280-300) L 11/14/18 05:42 Magnesium 1.5 mg/dL (1.6-2.6) L 11/12/18 03:41 Folate > 22.3 ng/mL (3.0-16.0) H 11/11/18 09:39 Ur Specific [place] 1.026 (1.010-1.025) H 11/11/18 16:10 Urine Protein 100 mg/dL (Neg-Trace) H 11/11/18 16:10 Urine Glucose (UA) >=1000 mg/dL (Normal) H 11/11/18 16:10 Urine Microscopic RBC 3-5 per hpf (0-3) H 11/11/18 16:10 Ur Squamous Epith Cells Many per lpf (None-Few) H 11/11/18 16:10 Consult Discharge Plan - Plan Referrals: NONE,PCP [Primary Care Provider] -
[2018-11-14] MEDS: Metoprolol XL (24 HR) Succ 50 MG TAB.ER.24H PO SCH (08:27)
[2018-11-14] MEDS: Potassium Chloride Elixir 20 MEQ/15 ML UDC PO SCH ×2 (08:28→20:10)
[2018-11-14] MEDS: amLODIPine 5 MG TABLET PO SCH (08:28)
[2018-11-14] MEDS: *HR* OxyCODONE Immed Rel 5 MG TABLET PO PRN ×2 (08:28→17:06)
--- NOTE | 2018-11-14 13:32 | Internal Med Progress Note ---
Hospitalist Progress Note - Encounter Date of Encounter: 11/14/18 Time of Encounter: 13:30 - Subjective Interval History: Pt complain of worsening headhace however pt was sleeping comfortably when I walked in. - Exam Vitals: Temp Pulse Resp BP Pulse Ox 98.9 F 60 14 179/76 96 11/14/18 12:22 11/14/18 12:22 11/14/18 12:22 11/14/18 12:22 11/14/18 12:22 Exam: General: Alert and leathrgic, holding her head up and c/o of the light hurts her eyes HEENT:EOMI, pupils equal, round and reactive. Cardiovascular:Normal S1 & S2, No JVD. Pulse regular. Lungs: clear to auscultation, no wheezes/rales Abdomen:Soft, non-tender, no rigidity. Extremities:No deformity or swelling Neurological: Grossly nonfocal, no facial droop or slurring of speech. Babinski downgoing bilaterally. Moving all 4 limbs spontaneously without difficulty Skin:Normal color, no rash, no lesions. 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 discussed with neurology service about it, again, I agree that there are no red flags. Neurolgoy note recommended ID, we will ask ID opoinion, if ID agrees, planning for discharge. 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 Pt has difficulty personality and refused to cooperate. Time: 35min - Time Spent with Patient Total time spent is greater than 50% in coordination of care (as documented) at patient's floor/unit and/or counseling patient: Internal Medicine: Result - Labs CBC & Chem 7: 11/14/18 05:42 11/14/18 05:42 Labs: Short CBC 11/14/18 Range/Units 05:42 WBC 6.8 (4.3-11.1) K/mcL Hgb 12.8 (11.5-15.4) g/dL Hct 37.4 (35.3-44.9) % Plt Count 228 (140-400) K/mcL Neutrophils # 5.3 (1.6-8.9) K/mcL BMP 11/14/18 05:42 Sodium 131 L Potassium 4.2 Chloride 100 Carbon Dioxide 25 BUN 17 Creatinine 0.61 Glucose 129 H Calcium 8.9 Liver Function 11/14/18 Range/Units 05:42 Total Bilirubin 0.3 (0.3-1.0) mg/dL AST 19 (13-39) Units/L ALT 17 (7-52) Units/L Alkaline Phosphatase 70 (34-104) Units/L Albumin 3.7 (3.5-5.7) g/dL - Impressions Impressions Head CTA 11/13/18 14:00 IMPRESSION: 1. No acute intracranial abnormality. 2. Unremarkable CTA of the head. No intracranial aneurysm. D/ / Wally Joe MD / Wally Joe MD Interpreting Provider: Wally Joe MD Consult Discharge Plan - Plan Referrals: NONE,PCP [Primary Care Provider] -
--- NOTE | 2018-11-14 14:52 | Infectious Disease Consult ---
Date of Encounter: 11/14/18 Time of Encounter: 14:47 Assessment and Plan (1) Herpes zoster ophthalmicus of left eye Status: Acute Assessment and plan: consult ophtthalmology acyclovir 10mg/kg q8hrs Cr Cl around 30; no dose adjustment needed d/w hospitalist team no need for air[place] and contract isolation since it's not disseminated concern for meningitis/encephalitis (AMS and headache) I did speak with interventional radiology who were adamant about not doing LP for at least 7 days because the patient had Plavix on Tuesday. Because of that we decided to treat the herpes ophthalmicus with IV acyclovir for possible herpes encephalopathy even though it is less likely. send fluid for cell count, protein, glucose, Gram stain and cultures. Also send CSF for HSV and VZV PCR (2) Altered mental status Status: Acute Qualifiers: Altered mental status type: unspecified Qualified Code(s): R41.82 - Altered mental status, unspecified (3) Headache Status: Acute Qualifiers: Headache type: unspecified Headache chronicity pattern: unspecified pattern Intractability: not intractable Qualified Code(s): R51 - Headache (4) Failure to thrive Status: Chronic Qualifiers: Failure to thrive age range: in adult Qualified Code(s): R62.7 - Adult failure to thrive (5) Herpes zoster with ophthalmic complication Status: Acute Assessment and plan: Recommend ophthalmology to evaluate Qualifiers: Herpes zoster ocular complication detail: unspecified herpes zoster eye disease Qualified Code(s): B02.30 - Zoster ocular disease, unspecified Infectious Disease HPI - Data of Consult Patient: new to practice Consult date: 11/14/18 Requesting Physician: Fracisco Davis Primary Care Provider: PCP NONE - Consult Narrative Reason for consult: shingles History of present illness: Ms. Rico is a 87 year old female Patient is an 87-year-old woman who presented to [facility] on 11/11/2018 for not feeling well and failure to thrive. We were asked to evaluate the patient 11/14/2018 for shingles. Most of the information was taken from medical records and the patient's daughter who I saw later during the day and answers some questions for me. Apparently patient is an 87-year-old woman with past medical history significant for dementia, hypothyroidism, hypertension, diabetes mellitus type 2, who lives alone and otherwise functional for the most part apparently was having si gnificant headache. Headache initially started a few days prior to admission. Patient presented to the emergency department on and she was sent home. Patient presented to the emergency department on Tuesday with similar symptoms and was sent home and then on Tuesday presented with the same headache and not feeling well and eventually got admitted. On further questioning, daughter tell s me that the patient's mentation is close to her baseline from August 2018. Apparently there is no change in personality and no severe encephalopathy. Since admission, patient has been afebrile. Patient has been without tachycardia or tachypnea. Presenting labs revealed normal WBC with normal differential. No bands. BUN/creatinine within normal limits. Hemoglobin A1c was slightly elevated 8.5. A urinalysis was not impressive. Viral panel was negative. CT head showed no acute intracranial abnormalities and unremarkable CTA of the head with no aneurysm. Patient apparently had a rash around her left eye were asked to evaluate the patient and make further recommendations. CC: Fracisco [place] Past Med Surg Social Fam HX - Past Medical History Medical history: diabetes, hypertension, thyroid disease Psychiatric history: no psych history - Past Surgical History Surgical History: appendectomy, hysterectomy, knee replacement, pacemaker/AICD, other Additional surgical history: tonsils,rt wrist. SEPTOPLASTY. right knee - Social History Smoking Status: Never smoker Smokeless Tobacco Status: No Alcohol use: none Drug use: none - Family History Father Living Status: Hx Family Cancer: Yes (prostate cancer) Mother Living Status: Hx Family Cardiac Disorders: Yes (HTN) Hx Family Endocrine Disorder: Yes Infectious Disease-CN:Meds RX: Levothyroxine [Synthroid] 25 mcg PO DAILY 01/01/16 [History] RX: Sitagliptin Phosphate [Januvia] 50 mg PO DAILY 01/01/16 [History] RX: amLODIPine [Norvasc] 5 mg PO DAILY 01/01/16 [History] RX: hydroCHLOROthiazide [Hydrochlorothiazide] 25 mg PO DAILY 01/01/16 [History] RX: Donepezil HCl [Aricept] 5 mg PO BID 07/13/16 [History] Metoprolol XL (24 HR) Succ [Toprol XL] 50 mg PO DAILY 04/17/18 [History] Atorvastatin Calcium [Lipitor] 20 mg PO DAILY 11/11/18 [History] Clopidogrel [Plavix] 75 mg PO DAILY 11/11/18 [History] Losartan [Cozaar] 50 mg PO DAILY 11/11/18 [History] Allergy/AdvReac Type Severity Reaction Status Date / Time lisinopril AdvReac Cough Verified 11/09/18 17:07 ROS unobtainable: due to mental status Exam - Constitutional Vitals: Temp Pulse Resp BP Pulse Ox 98.9 F 60 14 179/76 96 11/14/18 12:22 11/14/18 12:22 11/14/18 12:22 11/14/18 12:22 11/14/18 12:22 General appearance: disheveled, no febrile, no cooperative - Head Head exam: Present: atraumatic, normocephalic - Eye Additional comments: Left eye with surrounding rash suggestive of herpes ophthalmicus. Left eye is injected but there is no purulence coming out. Visual acuity unable to assess - ENT ENT exam: Present: mucous membranes dry, normal exam - Neck Neck exam: Present: full ROM. Absent: meningismus - Respiratory Respiratory exam: Present: CTAB. Absent: wheezes - Cardiovascular Cardiovascular exam: Present: RRR, +S1, +S2 - GI/Abdominal GI/Abdominal exam: Present: normal bowel sounds, soft. Absent: tenderness - Extremities Exam Extremities exam: Present: normal inspection. Absent: joint swelling - Neurological Exam Neurological exam: Present: altered. Absent: oriented X3 - Psychiatric Psychiatric exam: Present: normal affect, normal mood - Skin Additional comments: Herpetic lesions around the left eye following V1 distribution Infectious Disease CN: Results - Labs CBC & Chem 7: 11/15/18 04:12 11/15/18 04:12 Serology: Serology 11/11/18 11/11/18 Range/Units 16:10 11:57 Urine Color Yellow (Yellow) Urine Clarity Clear (Clear) Urine pH 7.0 (5.0-8.0) pH Units Ur Specific [place] 1.026 H (1.010-1.025) Urine Protein 100 H (Neg-Trace) mg/dL Urine Glucose (UA) >=1000 H (Normal) mg/dL Urine Ketones Negative (Negative) mg/dL Urine Blood Negative (Negative) Urine Nitrite Negative (Negative) Urine Bilirubin Negative (Negative) Urine Urobilinogen Normal (Normal) mg/dL Ur Leukocyte Esterase Negative (Negative) Urine Microscopic RBC 3-5 H (0-3) per hpf Urine Microscopic WBC 0-3 (0-3) per hpf Ur Squamous Epith Cells Many H (None-Few) per lpf Urine Bacteria None Seen (None-Few) per hpf Hyaline Casts None Seen (None-Few) per lpf Ur Culture Indicated? NO (NO) Chlamy pneumoniae PCR Not Detected (Not Detect) Adenovirus (PCR) Not Detected (Not Detect) B. pertussis DNA (PCR) Not Detected (Not Detect) B.parapertussis DNA PCR Not Detected (Not Detect) Coronavirus OC43 (PCR) Not Detected (Not Detect) Coronavirus HKU1 (PCR) Not Detected (Not Detect) Coronavirus 229E (PCR) Not Detected (Not Detect) Coronavirus NL63 (PCR) Not Detected (Not Detect) Human Metapneumovir PCR Not Detected (Not Detect) Influenza A (H1) PCR Not Detected (Not Detect) Influ A (H1N1/09) PCR Not Detected (Not Detect) Influenza A (H3) PCR Not Detected (Not Detect) Influenza A Untype (PCR) Not Detected (Not Detect) Influenza Type B (PCR) Not Detected (Not Detect) M.pneumoniae DNA (PCR) Not Detected (Not Detect) Parainfluenza 1 (PCR) Not Detected (Not Detect) Parainfluenza 2 (PCR) Not Detected (Not Detect) Parainfluenza 3 (PCR) Not Detected (Not Detect) Parainfluenza 4 (PCR) Not Detected (Not Detect) RSV (PCR) Not Detected (Not Detect) Entero/Rhino (PCR) Not Detected (Not Detect) Consult Discharge Plan - Plan Referrals: NONE,PCP [Primary Care Provider] -
[2018-11-14] MEDS ORDERED: valACYclovir 500 MG TABLET PO SCH (15:00)
--- NOTE | 2018-11-14 15:05 | Event Note ---
Date of Encounter: 11/14/18 Time of Encounter: 15:04 spoke with ID, ID is worried herpes meningitis / opthamcus, spoke with . He will come by to see pt.
--- NOTE | 2018-11-14 15:52 | Event Note ---
Date of Encounter: 11/14/18 Time of Encounter: 15:[address] Kuhn radiolgoist who had spoke with Dr. Samuels ID, deems the procedure risk out weigh benefit and is against hospital policy. We will not able to get the LP done until this weekend.
--- NOTE | 2018-11-14 19:32 | Internal Medicine Consult Note ---
Date of Encounter: 11/14/18 Time of Encounter: 18:41 Internal Medicine - CN: HPI - Data of Consult Requesting Physician: Fracisco Davis Patient reports "I cannot remember anything. I've not had anything like this. I understand I have shingles. I'm going through something I do not know what it is. I've had 8 children. I've had a full life. I haven't opened my eyes. I had good vision before." Examination: Visual acuity without correction was 20/200 in the right eye and 20/200+1 in the left eye (near equivalent Snellen). External examination reveals erythema and a vesicular rash involving the left forehead and scalp and the left upper eyelid. Patient had ptosis of the left upper eyelid. Slit-lamp examination revealed normal eyelids in the right eye and normal eyelids in the left eye with the exception of the rash and ptosis mentioned above. Conjunctiva was normal in the right eye there was moderate injection of the conjunctiva in the left eye. There was a yellow dry crust on the eyelashes of the left eye. The cornea was clear in the right eye. In the left eye mild superficial punctate staining was noted. The anterior chamber was grade 1 in depth and clear in both eyes. The iris was normal in both eyes. Intraocular pressures were 12 mmHg in the right eye and 18 mmHg in the left eye via applanation at 6:30 PM. The eyes were dilated with 1% tropicamide and 2-1/2% phenylephrine drops. After further dilation of the eyes examination of the lens revealed +3 nuclear sclerosis in both eyes. There was a trace posterior subcapsular cataract in the right eye and a trace cortical cataract in the left eye. There was a posterior vitreous detachment in the right eye. The vitreous was otherwise clear and normal in both eyes. The optic nerve heads appeared healthy in both eyes with no significant cupping and no evidence of papilledema or optic atrophy or other pathology noted. The retinal vessels were normal and the macula was normal in both eyes. 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 The retinal periphery was otherwise normal in both eyes. Impression: 1. 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 Continue systemic treatment with acyclovir. 2. Instill erythromycin ointment in the left eye twice a day for 1 week and then until all discharge has subsided in the left eye. 3. Apply bacitracin ointment to the affected skin rash twice daily until the rash is dry. 4. Patient may apply warm compresses to the rash 4 times daily as needed. 5. Patient should be reevaluated in the outpatient setting after 1-2 weeks. I would be happy to see her in my office should she desire to follow-up with me. Please give her my contact information should she desire to follow-up in my office after discharge. My office phone number is [phone]. Mu Phan D.O. - Consult Narrative History of present illness: Ms. Rico is a 87 year old female Past Med Surg Social Fam HX - Past Medical History Medical history: diabetes, hypertension, thyroid disease Psychiatric history: no psych history - Past Surgical History Surgical History: appendectomy, hysterectomy, knee replacement, pacemaker/AICD, other Additional surgical history: tonsils,rt wrist. SEPTOPLASTY. right knee - Social History Smoking Status: Never smoker Smokeless Tobacco Status: No Alcohol use: none Drug use: none - Family History Mother Living Status: Hx Family Cardiac Disorders: Yes (HTN) Hx Family Endocrine Disorder: Yes Father Living Status: Hx Family Cancer: Yes (prostate cancer) Internal Medicine - CN: Meds Levothyroxine [Synthroid] 25 mcg PO DAILY 01/01/16 [History] Sitagliptin Phosphate [Januvia] 50 mg PO DAILY 01/01/16 [History] amLODIPine [Norvasc] 5 mg PO DAILY 01/01/16 [History] hydroCHLOROthiazide [Hydrochlorothiazide] 25 mg PO DAILY 01/01/16 [History] Donepezil HCl [Aricept] 5 mg PO BID 07/13/16 [History] Metoprolol XL (24 HR) Succ [Toprol XL] 50 mg PO DAILY 04/17/18 [History] Atorvastatin Calcium [Lipitor] 20 mg PO DAILY 11/11/18 [History] Clopidogrel [Plavix] 75 mg PO DAILY 11/11/18 [History] Losartan [Cozaar] 50 mg PO DAILY 11/11/18 [History] Allergy/AdvReac Type Severity Reaction Status Date / Time lisinopril AdvReac Cough Verified 11/09/18 17:07 Internal Med - CN: Exam - Constitutional Vitals: Temp Pulse Resp BP Pulse Ox 98.9 F 66 18 155/74 92 11/14/18 16:53 11/14/18 16:53 11/14/18 16:53 11/14/18 16:53 11/14/18 16:53 Internal Medicine - CN: Reslt - Labs CBC & Chem 7: 11/14/18 05:42 11/14/18 05:42 Labs: Short CBC 11/14/18 Range/Units 05:42 WBC 6.8 (4.3-11.1) K/mcL Hgb 12.8 (11.5-15.4) g/dL Hct 37.4 (35.3-44.9) % Plt Count 228 (140-400) K/mcL Neutrophils # 5.3 (1.6-8.9) K/mcL BMP 11/14/18 05:42 Sodium 131 L Potassium 4.2 Chloride 100 Carbon Dioxide 25 BUN 17 Creatinine 0.61 Glucose 129 H Calcium 8.9 Liver Function 11/14/18 Range/Units 05:42 Total Bilirubin 0.3 (0.3-1.0) mg/dL AST 19 (13-39) Units/L ALT 17 (7-52) Units/L Alkaline Phosphatase 70 (34-104) Units/L Albumin 3.7 (3.5-5.7) g/dL Consult Discharge Plan - Plan Referrals: NONE,PCP [Primary Care Provider] -
[2018-11-14] MEDS: Erythromycin OPTH Oint LEFT EYE SCH (21:44)
[2018-11-15] MEDS: *HR* OxyCODONE Immed Rel 5 MG TABLET PO PRN ×2 (00:19→08:39)
[2018-11-15] MEDS: *HR* Labetalol 20 MG/4 ML SYRINGE IVP PRN ×2 (00:19→05:06)
[2018-11-15] MEDS: Acetaminophen/Butalbital/CaffeineTABLET PO SCH ×6 (00:19→20:05)
[2018-11-15] MEDS: Acyclovir 500 MG in D5% in Water 100 ML IVPB SCH ×3 (05:06→20:06)
[2018-11-15 05:23] LABS: Basophils % 0.4 %; Eosinophils % 0.1 %; Hematocrit 37.9 % (35.3-44.9); Hemoglobin 13.1 g/dL (11.5-15.4); Immature Granulocytes % 0.4 % (0-4); Lymphocytes # 0.9 K/mcL (0.6-4.6); Lymphocytes % 11.9 %; Mean Corpuscular HGB Conc 34.6 g/dL (31.6-35.5); Mean Corpuscular Hemoglobin 31.8 pg (28.0-33.3); Mean Platelet Volume 10.6 fL (9.4-12.4); Monocytes # 0.5 K/mcL (0.0-1.3); Monocytes % 6.9 %; Neutrophils # 6.2 K/mcL (1.6-8.9); Platelet Count 223 K/mcL (140-400); Red Blood Count 4.12 M/mcL (3.82-4.97); Red Cell Distribution Width 13.2 % (11.5-14.5); Segmented Neutrophils % 80.3 %
[2018-11-15 05:33] LABS: Alanine Aminotransferase 17 Units/L (7-52); Albumin 3.7 g/dL (3.5-5.7); Albumin/Globulin Ratio 1.3 (1.1-2.2); Alkaline Phosphatase 72 Units/L (34-104); Aspartate Amino Transferase 16 Units/L (13-39); BUN/Creatinine Ratio 26 (6-26); Bilirubin,Total 0.3 mg/dL (0.3-1.0); Blood Urea Nitrogen 21 mg/dL (8-23); Calcium 9.2 mg/dL (8.6-10.3); Carbon Dioxide 27 mEq/L (23-29); Chloride 96 mEq/L (98-107); Globulin 2.8 g/dL (2.4-3.5); Glucose 169 mg/dL (70-105); Osmolality,Calculated 275 (280-300); Potassium 4.6 mEq/L (3.5-5.1); Sodium 129 mEq/L (136-145); Total Protein 6.5 g/dL (6.4-8.9); eGFR For Non-African Americans > 60 (> 60)
[2018-11-15] MEDS: Levothyroxine 25 MCG TABLET PO SCH (06:11)
[2018-11-15] MEDS: methylPREDNISolone 125 MG/2 ML VIAL IVP SCH (06:12)
[2018-11-15] MEDS: amLODIPine 5 MG TABLET PO SCH (08:38)
[2018-11-15] MEDS: Metoprolol XL (24 HR) Succ 50 MG TAB.ER.24H PO SCH (08:39)
[2018-11-15] MEDS: Potassium Chloride Elixir 20 MEQ/15 ML UDC PO SCH ×2 (08:40→20:06)
[2018-11-15] MEDS: Insulin LISPRO 300 UNITS/3 ML VIAL SQ SCH ×4 (08:50→22:38)
[2018-11-15] MEDS: Erythromycin OPTH Oint LEFT EYE SCH ×2 (08:57→20:07)
--- NOTE | 2018-11-15 09:58 | Neurology Progress Note ---
<Juwan Jimenez J - Last Filed: 11/15/18 09:55> Date of Encounter: 11/15/18 Time of Encounter: 09:55 Assessment and Plan (1) Headache Current Visit: No Status: Acute Qualifiers: Headache type: unspecified Headache chronicity pattern: unspecified pattern Intractability: not intractable Qualified Code(s): R51 - Headache (2) Herpes zoster with ophthalmic complication Current Visit: Yes Status: Acute Neuro c/s for headache evaluation Patient has a diagnosis of herpes ophthalmicus. Today her neuro exam is nonfocal and nonlateralizing. However, exam is compli cated by her dismissive demeanor and agitation. She does not appear to have any tenderness extending into the trigeminal dermatome. Tenderness is localized to the left forehead and left orbit. The rashes continued have increased crusting. Ophthalmology has been consulted with recommendations to; instill erythromycin ointment in the left eye twice a day 1 week and then until all discharge has s ubsided in left eye. Apply bacitracin ointment to the affected skin twice a day until rash is dry. Warm compresses as needed for rash. Infectious disease following. Continue acyclovir at a dose and duration recommended by infectious disease. Qualifiers: Herpes zoster ocular complication detail: unspecified herpes zoster eye disease Qualified Code(s): B02.30 - Zoster ocular disease, unspecified Subjective Principal diagnosis: Herpes ophthalmicus; h/a Interval history: Seen and examined at the bedside today. She continues to be very dismissive and easily agitated. Her agitation and dismissive demeanor complicated the neuro exam. Today she continues to report discomfort in the left orbit and the left forehead. She does not however qualify or quantify the pain; she is stating "it hurts I don't know what else to tell you". I discussed the plan of care and she denies any further questions in regards to this. She is reporting no new concerns. Objective - Constitutional Vitals: Temp Pulse Resp BP Pulse Ox 98.7 F 60 20 170/77 97 11/15/18 08:32 11/15/18 08:32 11/15/18 08:32 11/15/18 06:37 11/15/18 08:32 Exam: Examination: Exam is complicated by patient's agitation and isthmus of demeanor. General Examination: *CONSTITUTIONAL: A&O X3, lethargic, in distress and agitated d/t h/a *GENERAL APPEARANCE OF PATIENT generally ill appearing elderly female. 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 No abnormal movements, fasciculations or atrophy identified. Neurological: *ORIENTATION to person, situation and place; disoriented to date. *RECURRENT AND REMOTE MEMORY intact *ATTENTION AND CONCENTRATION are normal, engages in conversation, answers basic questions *LANGUAGE FUNCTION no significant aphasia or dysarthia was noted. *FUND OF KNOWLEDGE unaware of current events *MENTAL attention span and concentration normal. *CN II optic fundi were normal, no papilledema noted. *CN III,IV, PERRLA extraocular eye movements were full, no nystagmus and no ptosis noted. *CN V shows normal sensation and jaw opens symmetrically. *CN VII shows normal facial movement symmetrically, upper and lower bilaterally. *CN VIII shows no significant hearing loss on examination in the office. *CN IX,,X palate elevated symmetrically and normal gag reflex was noted. *CN XI normal strength in the sternocleidomastoid muscles, symmetrical shoulder shrugging. *CN XII tongue protruded in the midline, with normal strength and movement. *SENSORY EXAMINATION pinprick sensation intact, and light touch(vibration sense). *REFLEXES: deep tendon reflexes are absent, no pathological reflexes were noted. *CEREBELLAR TESTING normal finger to nose *PAIN LEVEL in pain but refuses to quantify or elaborate further than just stating "my head hurts" RASH:, Erythematous raised rash located on the left forehead. There is mi nimal crust developing around the left orbit. She reports that the rash is not pruritic but is tender to palpation. Tenderness does not extend into the trigeminal dermatome. EARS: No visible lesions and ear canal Results - Laboratory Findings CBC and BMP: 11/15/18 04:12 11/15/18 04:12 Abnormal lab findings: Abnormal lab results ESR 29 mm/hr (0-15) H 11/11/18 21:20 Sodium 129 mEq/L (136-145) L 11/15/18 04:12 Chloride 96 mEq/L (98-107) L 11/15/18 04:12 Glucose 169 mg/dL (70-105) H 11/15/18 04:12 POC Glucose 157 mg/dL (70-99) H 11/15/18 08:35 Hemoglobin A1c 8.5 % (-5.6) H 11/11/18 07:47 Calculated Osmolality 275 (280-300) L 11/15/18 04:12 Magnesium 1.5 mg/dL (1.6-2.6) L 11/12/18 03:41 Folate > 22.3 ng/mL (3.0-16.0) H 11/11/18 09:39 Ur Specific [place] 1.026 (1.010-1.025) H 11/11/18 16:10 Urine Protein 100 mg/dL (Neg-Trace) H 11/11/18 16:10 Urine Glucose (UA) >=1000 mg/dL (Normal) H 11/11/18 16:10 Urine Microscopic RBC 3-5 per hpf (0-3) H 11/11/18 16:10 Ur Squamous Epith Cells Many per lpf (None-Few) H 11/11/18 16:10 Consult Discharge Plan - Plan Referrals: NONE,PCP [Primary Care Provider] - <Chris Asher - Last Filed: 11/15/18 12:47> Date of Encounter: 11/15/18 Assessment and Plan (1) Headache Current Visit: No Status: Acute Qualifiers: Headache type: unspecified Headache chronicity pattern: unspecified pattern Intractability: not intractable Qualified Code(s): R51 - Headache (2) Herpes zoster with ophthalmic complication Current Visit: Yes Status: Acute Again a [id number] examination and assessment was performed today. I did review the documentation left by infectious diseases and ophthalmology. I am doubtful that we are dealing with encephalitis because she has minimal mental status changes other than her agitation secondary to the pain. She is not really encephalopathic however. At this juncture not convinced that an LP will change our ultimate plan of treatment and care. Continue acyclovir therapy as recommended by infectious diseases. Certainly pain management will be long-term goal. We may have to increase strength of the agent perhaps to morphine or Dilaudid for brief period of time. We will also consider gabapentin 300 mg to start and titrating up to 3 times a day dosing. Otherwise we will reevaluate at your request. Qualifiers: Herpes zoster ocular complication detail: unspecified herpes zoster eye disease Qualified Code(s): B02.30 - Zoster ocular disease, unspecified Subjective Interval history: The chart was reviewed, a [id number] assessment was completed which included examination and clinical history. I agree with the documentation of the CMP as above. Patient still feels pretty much the same with significant left hemicranial pain and headache. She is not however encephalopathic in my opinion, we are not likely dealing with an encephalitis. At this juncture pain management is the main issue. Objective - Constitutional Vitals: Temp Pulse Resp BP Pulse Ox 98.3 F 60 15 148/67 92 11/15/18 10:32 11/15/18 10:32 11/15/18 10:32 11/15/18 10:32 11/15/18 10:32 Exam: I agree with the neurologic examination is documented above by the [employer]. Results - Laboratory Findings CBC and BMP: 11/15/18 04:12 11/15/18 04:12 Abnormal lab findings: Abnormal lab results ESR 29 mm/hr (0-15) H 11/11/18 21:20 Sodium 129 mEq/L (136-145) L 11/15/18 04:12 Chloride 96 mEq/L (98-107) L 11/15/18 04:12 Glucose 169 mg/dL (70-105) H 11/15/18 04:12 POC Glucose 189 mg/dL (70-99) H 11/15/18 12:05 Hemoglobin A1c 8.5 % (-5.6) H 11/11/18 07:47 Calculated Osmolality 275 (280-300) L 11/15/18 04:12 Magnesium 1.5 mg/dL (1.6-2.6) L 11/12/18 03:41 Folate > 22.3 ng/mL (3.0-16.0) H 11/11/18 09:39 Ur Specific [place] 1.026 (1.010-1.025) H 11/11/18 16:10 Urine Protein 100 mg/dL (Neg-Trace) H 11/11/18 16:10 Urine Glucose (UA) >=1000 mg/dL (Normal) H 11/11/18 16:10 Urine Microscopic RBC 3-5 per hpf (0-3) H 11/11/18 16:10 Ur Squamous Epith Cells Many per lpf (None-Few) H 11/11/18 16:10 VZV DNA (PCR) DETECTED A 11/12/18 06:18
--- NOTE | 2018-11-15 10:17 | Infectious Disease Progress No ---
Date of Encounter: 11/15/18 Time of Encounter: 10:00 - Assessment and Plan (1) Herpes zoster ophthalmicus of left eye Current Visit: Yes Status: Acute V1 dermatomal distribution. Not disseminated. No airborne precautions required. Opthalmology consulted. Appreciate recommendations. Concern for meningitis/encephalitis due to AMS and headache, but unable to have LP due to recent Plavix. Currently on IV Acyclovir, topical bacitracin, and topical erythromycin ointment. Recommendations: Recommend LP to evaluate for meningitis/encephalitis. Send CSF for cell count, protein, glucose, and gram stain/cultures, VZV and HSV PCR. Continue Acyclovir 10mg/kg IV Q8H. Symptomatic management per the primary team. Duration of treatment depends on the clinical picture. Monitor renal and liver function and dose-adjust antibiotics. (2) Altered mental status Current Visit: Yes Status: Acute Etiology unclear. Encephalitis/meningitis vs. other. Neurology consulted and following. Continue close monitoring. 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 Pain management per the primary team. Qualifiers: Qualified Code(s): R51 - Headache (4) Essential hypertension Current Visit: No Status: Chronic (5) Diabetes mellitus, type 2 Current Visit: No Status: Chronic Qualifiers: Qualified Code(s): E11.9 - Type 2 diabetes mellitus without complications - Subjective Interval history: Patient seen and examined. No acute events noted overnight. Patient states she has significant pain to the left for head and left eye. She states she is unable to open her eyes due to pain and she is unsure if she has any vision changes. She denies any fevers or chills or rigors. Denies any posterior headache or neck pain. Denies chest pain, shortness of breath, or cough. Denies nausea, vomiting, diarrhea, or constipation. Denies abdominal pain or urinary complaints. States she ate some breakfast, but it does not appear that her breakfast tray has been touched. She denies any oral thrush or new skin lesions. Infect Dis PN-Objective Data - Labs CBC & Chem 7: 11/16/18 06:13 11/16/18 06:13 Labs: Laboratory Results - last 24 hr 11/12/18 11/14/18 11/14/18 06:18 11:56 16:48 WBC RBC Hgb Hct MCV MCH MCHC RDW Plt Count MPV Immature Gran % Seg Neutrophils % Lymphocytes % Monocytes % Eosinophils % Basophils % Neutrophils # Lymphocytes # Monocytes # Eosinophils # Basophils # Sodium Potassium Chloride Carbon Dioxide BUN Creatinine Est GFR ( Amer) Est GFR (Non-Af Amer) BUN/Creatinine Ratio Glucose POC Glucose 190 H 230 H Calculated Osmolality Calcium Total Bilirubin AST ALT Alkaline Phosphatase Serum Total Protein Albumin Globulin Albumin/Globulin Ratio Varicella-Zoster Source SERUM VZV DNA (PCR) DETECTED A 11/14/18 11/15/18 11/15/18 20:00 04:12 04:12 WBC 7.7 RBC 4.12 Hgb 13.1 Hct 37.9 MCV 92.0 MCH 31.8 MCHC 34.6 RDW 13.2 Plt Count 223 MPV 10.6 Immature Gran % 0.4 Seg Neutrophils % 80.3 Lymphocytes % 11.9 Monocytes % 6.9 Eosinophils % 0.1 Basophils % 0.4 Neutrophils # 6.2 Lymphocytes # 0.9 Monocytes # 0.5 Eosinophils # 0.0 Basophils # 0.0 Sodium 129 L Potassium 4.6 Chloride 96 L Carbon Dioxide 27 BUN 21 Creatinine 0.82 Est GFR ( Amer) > 60 Est GFR (Non-Af Amer) > 60 BUN/Creatinine Ratio 26 Glucose 169 H POC Glucose 230 H Calculated Osmolality 275 L Calcium 9.2 Total Bilirubin 0.3 AST 16 ALT 17 Alkaline Phosphatase 72 Serum Total Protein 6.5 Albumin 3.7 Globulin 2.8 Albumin/Globulin Ratio 1.3 Varicella-Zoster Source VZV DNA (PCR) 11/15/18 08:35 WBC RBC Hgb Hct MCV MCH MCHC RDW Plt Count MPV Immature Gran % Seg Neutrophils % Lymphocytes % Monocytes % Eosinophils % Basophils % Neutrophils # Lymphocytes # Monocytes # Eosinophils # Basophils # Sodium Potassium Chloride Carbon Dioxide BUN Creatinine Est GFR ( Amer) Est GFR (Non-Af Amer) BUN/Creatinine Ratio Glucose POC Glucose 157 H Calculated Osmolality Calcium Total Bilirubin AST ALT Alkaline Phosphatase Serum Total Protein Albumin Globulin Albumin/Globulin Ratio Varicella-Zoster Source VZV DNA (PCR) Cultures: Serology 11/12/18 11/11/18 11/11/18 Range/Units 06:18 16:10 11:57 Urine Color Yellow (Yellow) Urine Clarity Clear (Clear) Urine pH 7.0 (5.0-8.0) pH Units Ur Specific [place] 1.026 H (1.010-1.025) Urine Protein 100 H (Neg-Trace) mg/dL Urine Glucose (UA) >=1000 H (Normal) mg/dL Urine Ketones Negative (Negative) mg/dL Urine Blood Negative (Negative) Urine Nitrite Negative (Negative) Urine Bilirubin Negative (Negative) Urine Urobilinogen Normal (Normal) mg/dL Ur Leukocyte Esterase Negative (Negative) Urine Microscopic RBC 3-5 H (0-3) per hpf Urine Microscopic WBC 0-3 (0-3) per hpf Ur Squamous Epith Cells Many H (None-Few) per lpf Urine Bacteria None Seen (None-Few) per hpf Hyaline Casts None Seen (None-Few) per lpf Ur Culture Indicated? NO (NO) Chlamy pneumoniae PCR Not Detected (Not Detect) Adenovirus (PCR) Not Detected (Not Detect) B. pertussis DNA (PCR) Not Detected (Not Detect) B.parapertussis DNA PCR Not Detected (Not Detect) Coronavirus OC43 (PCR) Not Detected (Not Detect) Coronavirus HKU1 (PCR) Not Detected (Not Detect) Coronavirus 229E (PCR) Not Detected (Not Detect) Coronavirus NL63 (PCR) Not Detected (Not Detect) Human Metapneumovir PCR Not Detected (Not Detect) Influenza A (H1) PCR Not Detected (Not Detect) Influ A (H1N1/09) PCR Not Detected (Not Detect) Influenza A (H3) PCR Not Detected (Not Detect) Influenza A Untype (PCR) Not Detected (Not Detect) Influenza Type B (PCR) Not Detected (Not Detect) M.pneumoniae DNA (PCR) Not Detected (Not Detect) Parainfluenza 1 (PCR) Not Detected (Not Detect) Parainfluenza 2 (PCR) Not Detected (Not Detect) Parainfluenza 3 (PCR) Not Detected (Not Detect) Parainfluenza 4 (PCR) Not Detected (Not Detect) RSV (PCR) Not Detected (Not Detect) Entero/Rhino (PCR) Not Detected (Not Detect) Varicella-Zoster Source SERUM VZV DNA (PCR) DETECTED A Exam - Constitutional Vitals: Temp Pulse Resp BP Pulse Ox 98.7 F 60 20 170/77 97 11/15/18 08:32 11/15/18 08:32 03/06/19 08:32 11/15/18 06:37 11/15/18 08:32 General appearance: average body habitus, cooperative, no acute distress - Head Head exam: Present: atraumatic, normal inspection, normocephalic - Eye Eye exam: Absent: normal appearance (Crusting vesicular lesions noted to the left upper and lower eyelids and orbital areas with tenderness noted on palpation. Unable to assess the eye itself as the patient refuses to open her eyes for examination.) - ENT ENT exam: Present: mucous membranes moist - Neck Neck exam: Present: normal inspection. Absent: meningismus - Respiratory Respiratory exam: Present: CTAB. Absent: rales, respiratory distress, rhonchi, wheezes - Cardiovascular Cardiovascular exam: Present: RRR, +S1, +S2 - GI/Abdominal GI/Abdominal exam: Present: normal bowel sounds, soft. Absent: distended, tenderness - Extremities Exam Extremities exam: Present: normal inspection. Absent: joint swelling, pedal edema, tenderness - Neurological Exam Neurological exam: Present: alert, oriented X3, no focal deficits - Psychiatric Psychiatric exam: Present: normal affect, normal mood - Skin Skin exam: Present: dry, intact, normal color, vesicles (Vesicular lesion noted to the left forehead, scalp, upper and lower eyelids, and orbital area.), warm Consult Discharge Plan - Plan Referrals: NONE,PCP [Primary Care Provider] - - Attending Attestation I examined this patient and my medical decision-making was reviewed with the Resident Physician. I agree with the documented findings, disposition and treatment plan as described except to the extent set forth below. Patient seen and examined. Clinically doing better. Mentation improved Assessment and plan: Herpes zoster areas of her left eye Altered mental status improved back to baseline Headache improved back at baseline Failure to thrive Herpes ophthalmicus complication Recommendations: We were unsuccessful to get an LP on this patient because of recent Plavix. 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 Continue acyclovir 10 mg/kg every 8 hours 7 days followed by 7 days of oral acyclovir Continue mupirocin and erythromycin her ophthalmology evaluation Monitor labs for drug toxicity Aggressive hydration so acyclovir does not cause problems with the kidneys
--- NOTE | 2018-11-15 14:36 | Internal Med Progress Note ---
Hospitalist Progress Note - Encounter Date of Encounter: 11/15/18 Time of Encounter: 14:34 - Subjective Interval History: Patient seen and examined at bedside. Patient reports significant pain and left side of the face. She reports pain medication helps somewhat. - Exam Vitals: Temp Pulse Resp BP Pulse Ox 98.3 F 60 15 148/67 92 11/15/18 10:32 11/15/18 10:32 11/15/18 10:32 11/15/18 10:32 11/15/18 10:32 Exam: Heart: Regular rate and rhythm, no murmurs, rubs, gallops Lungs: Clear to auscultation bilaterally, no rales, rhonchi, wheezes Skin: Erythema to the V1 distribution of the left side of the face. Patient would not open her eye from a. - Assessment and Plan (1) Herpes zoster ophthalmicus of left eye Current Visit: Yes Status: Acute Assessment and Plan: Patient has persistent discomfort due to herpes zoster ophthalmicus. Current pain regimen is helping but patient still has significant pain. We will add gabapentin 3 mg 3 times a day. Continue acyclovir per ID recommendations. Patient seen by ophthalmology, we will plan for outpatient follow-up. We will switch IV steroids to by mouth steroids. (2) Essential hypertension Current Visit: No Status: Chronic Assessment and Plan: Blood pressure mildly elevated, likely due to pain. We will work on pain control as discussed above. Increase amlodipine to 10 mg daily. (3) Diabetes mellitus, type 2 Current Visit: No Status: Chronic Assessment and Plan: Blood sugar under relatively good control. Continue sliding scale insulin and adjust as necessary (4) Hyponatremia Current Visit: Yes Status: Acute Assessment and Plan: Stable. Chronic for patient. Continue to encourage by mouth intake. Asymptomatic. (5) Dementia Current Visit: No Status: Chronic Assessment and Plan: Patient appears to be at baseline mental status. Daughter is helping. Plan for ECF placement at discharge, attempting to arrange. (6) Hypothyroid Current Visit: Yes Status: Chronic Assessment and Plan: Continue levothyroxine. - Time Spent with Patient Total time spent is greater than 50% in coordination of care (as documented) at patient's floor/unit and/or counseling patient: Internal Medicine: Result - Labs CBC & Chem 7: 11/15/18 04:12 11/15/18 04:12 Labs: Short CBC 11/15/18 Range/Units 04:12 WBC 7.7 (4.3-11.1) K/mcL Hgb 13.1 (11.5-15.4) g/dL Hct 37.9 (35.3-44.9) % Plt Count 223 (140-400) K/mcL Neutrophils # 6.2 (1.6-8.9) K/mcL BMP 11/15/18 04:12 Sodium 129 L Potassium 4.6 Chloride 96 L Carbon Dioxide 27 BUN 21 Creatinine 0.82 Glucose 169 H Calcium 9.2 Liver Function 11/15/18 Range/Units 04:12 Total Bilirubin 0.3 (0.3-1.0) mg/dL AST 16 (13-39) Units/L ALT 17 (7-52) Units/L Alkaline Phosphatase 72 (34-104) Units/L Albumin 3.7 (3.5-5.7) g/dL Consult Discharge Plan - Plan Referrals: NONE,PCP [Primary Care Provider] - (3) Diabetes mellitus, type 2 Qualifiers: Diabetes mellitus half-way insulin use: without keno terminal operator use Diabetes mellitus complication status: without complication Qualified Code(s): E11.9 - Type 2 diabetes mellitus without complications (5) Dementia Qualifiers: Dementia type: unspecified type Dementia behavioral disturbance: without behavioral disturbance Qualified Code(s): F03.90 - Unspecified dementia without behavioral disturbance (6) Hypothyroid Qualifiers: Hypothyroidism type: unspecified Qualified Code(s): E03.9 - Hypothyroidism, unspecified
[2018-11-15] MEDS: Gabapentin 300 MG CAPSULE PO SCH ×2 (16:32→20:06)
[2018-11-16] MEDS: Acetaminophen/Butalbital/CaffeineTABLET PO SCH ×4 (02:23→12:50)
[2018-11-16] MEDS: Acyclovir 500 MG in D5% in Water 100 ML IVPB SCH (03:27)
[2018-11-16] MEDS: Levothyroxine 25 MCG TABLET PO SCH (04:43)
[2018-11-16 06:42] LABS: Basophils % 0.4 %; Eosinophils # 0.1 K/mcL (0.0-0.6); Eosinophils % 1.2 %; Hematocrit 37.2 % (35.3-44.9); Hemoglobin 12.7 g/dL (11.5-15.4); Immature Granulocytes % 0.4 % (0-4); Lymphocytes # 1.5 K/mcL (0.6-4.6); Lymphocytes % 20.1 %; Mean Corpuscular HGB Conc 34.1 g/dL (31.6-35.5); Mean Corpuscular Hemoglobin 31.2 pg (28.0-33.3); Mean Corpuscular Volume 91.4 fL (83.0-100.0); Mean Platelet Volume 10.4 fL (9.4-12.4); Monocytes # 0.8 K/mcL (0.0-1.3); Monocytes % 10.7 %; Neutrophils # 5.1 K/mcL (1.6-8.9); Platelet Count 213 K/mcL (140-400); Red Blood Count 4.07 M/mcL (3.82-4.97); Red Cell Distribution Width 13.3 % (11.5-14.5); Segmented Neutrophils % 67.2 %
[2018-11-16 06:53] LABS: Alanine Aminotransferase 17 Units/L (7-52); Albumin 3.6 g/dL (3.5-5.7); Albumin/Globulin Ratio 1.5 (1.1-2.2); Alkaline Phosphatase 76 Units/L (34-104); Aspartate Amino Transferase 17 Units/L (13-39); BUN/Creatinine Ratio 30 (6-26); Bilirubin,Total 0.3 mg/dL (0.3-1.0); Blood Urea Nitrogen 20 mg/dL (8-23); Calcium 8.8 mg/dL (8.6-10.3); Carbon Dioxide 27 mEq/L (23-29); Chloride 94 mEq/L (98-107); Globulin 2.4 g/dL (2.4-3.5); Glucose 161 mg/dL (70-105); Osmolality,Calculated 270 (280-300); Potassium 4.3 mEq/L (3.5-5.1); Sodium 127 mEq/L (136-145); eGFR For Non-African Americans > 60 (> 60)
[2018-11-16] MEDS: Insulin LISPRO 300 UNITS/3 ML VIAL SQ SCH ×2 (07:42→12:51)
[2018-11-16] MEDS ORDERED: amLODIPine 5 MG TABLET PO SCH (09:00)
[2018-11-16] MEDS ORDERED: predniSONE 20 MG TABLET PO SCH (09:00)
[2018-11-16] MEDS: Gabapentin 300 MG CAPSULE PO SCH (09:15)
[2018-11-16] MEDS: Erythromycin OPTH Oint LEFT EYE SCH (09:16)
[2018-11-16] MEDS: Metoprolol XL (24 HR) Succ 50 MG TAB.ER.24H PO SCH (09:16)
[2018-11-16] MEDS: Potassium Chloride Elixir 20 MEQ/15 ML UDC PO SCH (09:17)
--- NOTE | 2018-11-16 10:23 | Infectious Disease Progress No ---
Date of Encounter: 11/16/18 Time of Encounter: 09:05 - Assessment and Plan (1) Herpes zoster ophthalmicus of left eye Status: Acute V1 dermatomal distribution. Not disseminated. No airborne precautions required. Opthalmology consulted. Appreciate recommendations. Concern for meningitis/encephalitis due to AMS and headache, but unable to have LP due to recent Plavix. Currently on IV Acyclovir, topical bacitracin, and topical erythromycin ointment. Recommendations: Continue Acyclovir 10mg/kg IV Q8H. (day 5) Symptomatic management per the primary team. Duration of treatment depends on the clinical picture. We will plan a total of 7 days of IV acyclovir and then switched to by mouth to complete a 14 day course. Monitor renal and liver function and dose-adjust antibiotics. (2) Altered mental status Status: Acute Etiology unclear, but per her family, she appears to be back to baseline. Neurology consulted and following. Continue close monitoring. 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 Pain management per the primary team. Qualifiers: Headache type: unspecified Headache chronicity pattern: unspecified pattern Intractability: not intractable Qualified Code(s): R51 - Headache (4) Essential hypertension Status: Chronic (5) Diabetes mellitus, type 2 Status: Chronic Qualifiers: Diabetes mellitus terminal worker insulin use: without fci use Diabetes me llitus complication status: without complication Qualified Code(s): E11.9 - Type 2 diabetes mellitus without complications - Subjective Interval history: Patient seen and examined. No acute events noted overnight. Patient complains of pain to her head. States she thinks she feels a little bit better today.. She states she is unable to open her eyes due to pain and she is unsure if she has any vision changes. She denies any fevers or chills or rigors. Denies any posterior headache or neck pain. Denies chest pain, shortness of breath, or cough. Denies nausea, vomiting, diarrhea, or constipation. Denies abdominal pain or urinary complaints, but states she does not know the last time she had a bowel movement for the last time she urinated. She states she is hungry and would like help eating her breakfast. She denies any oral thrush or new skin lesions. Infect Dis PN-Objective Data - Labs CBC & Chem 7: 11/16/18 06:13 11/16/18 06:13 Labs: Laboratory Results - last 24 hr 11/13/18 11/13/18 11/15/18 15:45 20:19 12:05 WBC RBC Hgb Hct MCV MCH MCHC RDW Plt Count MPV Immature Gran % Seg Neutrophils % Lymphocytes % Monocytes % Eosinophils % Basophils % Neutrophils # Lymphocytes # Monocytes # Eosinophils # Basophils # Sodium Potassium Chloride Carbon Dioxide BUN Creatinine Est GFR ( Amer) Est GFR (Non-Af Amer) BUN/Creatinine Ratio Glucose POC Glucose 185 H 114 H 189 H Calculated Osmolality Calcium Total Bilirubin AST ALT Alkaline Phosphatase Serum Total Protein Albumin Globulin Albumin/Globulin Ratio 11/16/18 11/16/18 06:13 06:13 WBC 7.6 RBC 4.07 Hgb 12.7 Hct 37.2 MCV 91.4 MCH 31.2 MCHC 34.1 RDW 13.3 Plt Count 213 MPV 10.4 Immature Gran % 0.4 Seg Neutrophils % 67.2 Lymphocytes % 20.1 Monocytes % 10.7 Eosinophils % 1.2 Basophils % 0.4 Neutrophils # 5.1 Lymphocytes # 1.5 Monocytes # 0.8 Eosinophils # 0.1 Basophils # 0.0 Sodium 127 L Potassium 4.3 Chloride 94 L Carbon Dioxide 27 BUN 20 Creatinine 0.66 Est GFR ( Amer) > 60 Est GFR (Non-Af Amer) > 60 BUN/Creatinine Ratio 30 H Glucose 161 H POC Glucose Calculated Osmolality 270 L Calcium 8.8 Total Bilirubin 0.3 AST 17 ALT 17 Alkaline Phosphatase 76 Serum Total Protein 6.0 L Albumin 3.6 Globulin 2.4 Albumin/Globulin Ratio 1.5 Cultures: Serology 11/12/18 11/11/18 11/11/18 Range/Units 06:18 16:10 11:57 Urine Color Yellow (Yellow) Urine Clarity Clear (Clear) Urine pH 7.0 (5.0-8.0) pH Units Ur Specific [place] 1.026 H (1.010-1.025) Urine Protein 100 H (Neg-Trace) mg/dL Urine Glucose (UA) >=1000 H (Normal) mg/dL Urine Ketones Negative (Negative) mg/dL Urine Blood Negative (Negative) Urine Nitrite Negative (Negative) Urine Bilirubin Negative (Negative) Urine Urobilinogen Normal (Normal) mg/dL Ur Leukocyte Esterase Negative (Negative) Urine Microscopic RBC 3-5 H (0-3) per hpf Urine Microscopic WBC 0-3 (0-3) per hpf Ur Squamous Epith Cells Many H (None-Few) per lpf Urine Bacteria None Seen (None-Few) per hpf Hyaline Casts None Seen (None-Few) per lpf Ur Culture Indicated? NO (NO) Chlamy pneumoniae PCR Not Detected (Not Detect) Adenovirus (PCR) Not Detected (Not Detect) B. pertussis DNA (PCR) Not Detected (Not Detect) B.parapertussis DNA PCR Not Detected (Not Detect) Coronavirus OC43 (PCR) Not Detected (Not Detect) Coronavirus HKU1 (PCR) Not Detected (Not Detect) Coronavirus 229E (PCR) Not Detected (Not Detect) Coronavirus NL63 (PCR) Not Detected (Not Detect) Human Metapneumovir PCR Not Detected (Not Detect) Influenza A (H1) PCR Not Detected (Not Detect) Influ A (H1N1/09) PCR Not Detected (Not Detect) Influenza A (H3) PCR Not Detected (Not Detect) Influenza A Untype (PCR) Not Detected (Not Detect) Influenza Type B (PCR) Not Detected (Not Detect) M.pneumoniae DNA (PCR) Not Detected (Not Detect) Parainfluenza 1 (PCR) Not Detected (Not Detect) Parainfluenza 2 (PCR) Not Detected (Not Detect) Parainfluenza 3 (PCR) Not Detected (Not Detect) Parainfluenza 4 (PCR) Not Detected (Not Detect) RSV (PCR) Not Detected (Not Detect) Entero/Rhino (PCR) Not Detected (Not Detect) Varicella-Zoster Source SERUM VZV DNA (PCR) DETECTED A Exam - Constitutional Vitals: Temp Pulse Resp BP Pulse Ox 99.6 F 60 12 160/72 92 11/16/18 07:55 11/16/18 07:55 11/16/18 07:55 11/16/18 07:55 11/16/18 07:55 General appearance: average body habitus, cooperative, no acute distress - Head Head exam: Present: atraumatic, normal inspection, normocephalic - Eye Eye exam: Present: EOMI, PERRL. Absent: normal appearance (Vesicular lesions noted to the left upper lid.) Pupils: Present: normal accommodation - ENT ENT exam: Present: mucous membranes dry - Neck Neck exam: Present: normal inspection. Absent: meningismus - Respiratory Respiratory exam: Present: CTAB. Absent: rales, respiratory distress, rhonchi, wheezes - Cardiovascular Cardiovascular exam: Present: RRR, +S1, +S2 - GI/Abdominal GI/Abdominal exam: Present: normal bowel sounds, soft. Absent: distended, tenderness - Extremities Exam Extremities exam: Present: normal inspection. Absent: joint swelling, pedal edema, tenderness - Neurological Exam Neurological exam: Present: alert, no focal deficits (Moves all extremities 4 on command.), strengths equal and symetr throughout. Absent: oriented X3 (Oriented to person only.) - Psychiatric Psychiatric exam: Present: normal affect, normal mood - Skin Skin exam: Present: dry, intact, normal color, vesicles (Vesicular rash noted to the left forehead, left upper eye, and left parietal scalp.), warm. Absent: cyanosis Consult Discharge Plan - Plan Additional Instructions: Please follow-up with Dr. Phan as scheduled. Please take valacyclovir until complete. Please resume your other home medications other than Hydrocort thiazide. Please return for any worsening symptoms. Referrals: NONE,PCP [Primary Care Provider] - Mu Phan, [Non-Partnered Physician] - 12/05/18 1:30 pm (1-2 weeks) - Attending Attestation I examined this patient and my medical decision-making was reviewed with the Resident Physician. I agree with the documented findings, disposition and treatment plan as described except to the extent set forth below. Patient seen and examined. Clinically doing better. Mentation improved Assessment and plan: Herpes zoster areas of her left eye Altered mental status improved back to baseline Headache improved back at baseline Failure to thrive Herpes ophthalmicus complication Recommendations: We were unsuccessful to get an LP on this patient because of recent Plavix. 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 Continue acyclovir 10 mg/kg every 8 hours 7 days followed by 7 days of oral acyclovir Continue mupirocin and erythromycin her ophthalmology evaluation Monitor labs for drug toxicity Aggressive hydration so acyclovir does not cause problems with the kidneys
[2018-11-16 10:56] VITALS: BP 138/68
--- NOTE | 2018-11-16 12:26 | Discharge Summary ---
- NOTES TO OUTPATIENT PROVIDER Notes to Outpatient Provider: Patient treated for herpes zoster opthalmacus, seen by ID and optho Orders not resulted at time of discharge: Pending orders 11/12/18 12:03 AFB Smear [TB] Routine VDRL reflex titer, CSF Routine Varicella-Zoster Virus PCR Routine 11/14/18 15:01 Cell Count w Diff, Body Fluid [BF] Routine Cell Count w Diff, CSF [BF] Routine Glucose,CSF [BF] Routine VDRL reflex titer, CSF Routine Varicella-Zoster Virus PCR Routine 11/14/18 15:02 Culture,CSF [RM] Routine Gram Stain [RM] Routine 11/15/18 00:01 XR guided lumbar puncture [XR] Stat 11/17/18 04:00 Complete Blood Count [HEME] AM 0400 Comprehensive Metabolic Panel AM 0400 Date of Encounter: 11/16/18 Time of Encounter: 12:22 - Discharge Diagnosis (1) Herpes zoster ophthalmicus of left eye Priority: Primary Status: Acute (2) Essential hypertension Priority: Secondary Status: Chronic (3) Diabetes mellitus, type 2 Priority: Secondary Status: Chronic Qualifiers: Diabetes mellitus mcc insulin use: without mcc use Diabetes mellitus complication status: without complication Qualified Code(s): E11.9 - Type 2 diabetes mellitus without complications (4) Hyponatremia Priority: Secondary Status: Chronic (5) Dementia Priority: Secondary Status: Chronic Qualifiers: Dementia type: unspecified type Dementia behavioral disturbance: without behavioral disturbance Qualified Code(s): F03.90 - Unspecified dementia without behavioral disturbance (6) Hypothyroid Priority: Secondary Status: Chronic Qualifiers: Hypothyroidism type: unspecified Qualified Code(s): E03.9 - Hypothyroidism, unspecified Hospital course: Ms. Rico is a 88 year old female with history of hypertension, dementia presented initially with generalized complaints of feeling unwell. The evening of her admission she developed a rash on the left upper part of her face. She was evaluated by neurology, ophthalmology, infectious disease who felt that this was her first herpes zoster ophthalmicus. Patient was treated initially with acyclovir which was switched to IV acyclovir. An LP was recommended however is unable to be performed given that the patient was on Plavix. She seemed to recover well from her treatment and was treated symptomatically for her pain with steroids, pain medication, and gabapentin. She seemed to respond best to gabapentin. Patient will be discharged to [facility] in stable condition. Discharge discussed with: patient, family - Time Spent with Patient Total time spent providing and/or coordinating discharge services: 40 minutes - Discharge Medications Prescriptions: New Acetaminophen/Butalbital/Caffe [Fioricet] 1 each PO Q4H tablet Bacitracin OINT [Ak-Tracin] 1 appl TP BID tube Erythromycin OPTH Oint 1 appl LEFT EYE BID tube Gabapentin [Neurontin] 300 mg PO TID 20 Days #60 capsule valACYclovir [Valtrex] 1,000 mg PO TID 9 Days #27 tablet Continue Sitagliptin Phosphate [Januvia] 50 mg PO DAILY Levothyroxine [Synthroid] 25 mcg PO DAILY Donepezil HCl [Aricept] 5 mg PO BID Metoprolol XL (24 HR) Succ [Toprol Xl] 50 mg PO DAILY Losartan [Cozaar] 50 mg PO DAILY Clopidogrel [Plavix] 75 mg PO DAILY Atorvastatin Calcium [Lipitor] 20 mg PO DAILY Changed amLODIPine [Norvasc] 10 mg PO DAILY #0 Discontinued hydroCHLOROthiazide [Hydrochlorothiazide] 25 mg PO DAILY Home Medications: Levothyroxine [Synthroid] 25 mcg PO DAILY 01/01/16 [History] Sitagliptin Phosphate [Januvia] 50 mg PO DAILY 01/01/16 [History] Donepezil HCl [Aricept] 5 mg PO BID 07/13/16 [History] Metoprolol XL (24 HR) Succ [Toprol Xl] 50 mg PO DAILY 04/17/18 [History] Atorvastatin Calcium [Lipitor] 20 mg PO DAILY 11/11/18 [History] Clopidogrel [Plavix] 75 mg PO DAILY 11/11/18 [History] Losartan [Cozaar] 50 mg PO DAILY 11/11/18 [History] Acetaminophen/Butalbital/Caffe [Fioricet] 1 each PO Q4H tablet 11/16/18 [Rx] Bacitracin OINT [Ak-Tracin] 1 appl TP BID tube 11/16/18 [Rx] Erythromycin OPTH Oint 1 appl LEFT EYE BID tube 11/16/18 [Rx] Gabapentin [Neurontin] 300 mg PO TID 20 Days #60 capsule 11/16/18 [Rx] amLODIPine [Norvasc] 10 mg PO DAILY #0 11/16/18 [Rx] valACYclovir [Valtrex] 1,000 mg PO TID 9 Days #27 tablet 11/16/18 [Rx] Allergies/Adverse Reactions: Allergy/AdvReac Type Severity Reaction Status Date / Time lisinopril AdvReac Cough Verified 11/09/18 17:07 Date of admission: 11/11/18 16:46 Primary care physician: PCP NONE Consults: 11/11/18 09:07 Consult to Occupational Therapy [CONS] Routine Comment: Evaluate, develop and implement POC Reason for Consult: dementia, failure to thrive Does patient have active BEDREST order?: No Is patient medically & hemodynamically stable?: Yes Consult to Physical Therapy [CONS] Routine Comment: Evaluate, develop and implement POC Reason for Consult: dementia, failure to thrive Does patient have active BEDREST order?: No Is patient medically & hemodynamically stable?: Yes Consult to Real Estate Management Specialist [CONS] Routine Reason for SW Consult: dementia, failure to thrive 11/12/18 07:02 Consult to Nutrition [CONS] Routine Comment: ENSURE Consulting Provider: NUTRITION Reason for Dietary Consult: PO Supplementation 11/12/18 13:20 Consult to Neurology [CONS] Routine Consulting Provider: [facility] Reason for Consult: intractalbe headache Call Completed: No 11/14/18 18:33 Consult to Physician [CONS] Stat Consulting Provider: Mu Phan Reason for Consult: herpes opathlmicus Call Completed: Yes Discharging clinician: Chris Abdullahi Anticipated date of discharge: 11/16/18 - Constitutional Vitals: Temp Pulse Resp BP Pulse Ox 97.8 F 65 14 138/68 95 11/16/18 10:54 11/16/18 10:54 11/16/18 10:54 11/16/18 10:54 11/16/18 10:54 General appearance: Present: pleasant, no acute distress Exam: . - Respiratory Respiratory exam: Present: CTAB. Absent: rales, rhonchi, wheezes - Cardiovascular Cardiovascular exam: Present: RRR. Absent: gallop, rubs, systolic murmur - Skin Additional comments: Erythema to left upper face - Patient Status Disposition: Transfer SNF Condition: Fair Functional capacity at discharge: uses cane/walker Overall status at discharge: patient is progressing back to baseline - Discharge Instructions Follow Up With: NONE,PCP [Primary Care Provider] - Mu Phan, [Non-Partnered Physician] - (1-2 weeks) Additional Instructions: Please follow-up with Dr. Phan as scheduled. Please take valacyclovir until complete. Please resume your other home medications other than Hydrocort thiazide. Please return for any worsening symptoms. - Diet and Activity Activity: as per physical therapy, increase activity as tolerated Diet: diabetic diet
--- NOTE | 2018-11-16 12:33 | Physician Discharge Referral ---
ExtendedCare Referral Info Provider in Charge after Transfer: PCP Institutional Level of Care: Skilled - Diagnosis (1) Herpes zoster ophthalmicus of left eye Priority: Primary Status: Acute (2) Essential hypertension Priority: Secondary Status: Chronic (3) Diabetes mellitus, type 2 Priority: Secondary Status: Chronic (4) Hyponatremia Priority: Secondary Status: Chronic (5) Dementia Priority: Secondary Status: Chronic (6) Hypothyroid Priority: Secondary Status: Chronic Prognosis: Fair Aware of Diagnosis: Patient, Family Aware of Prognosis: Patient, Family - Transfer Medications Home Medications: Levothyroxine [Synthroid] 25 mcg PO DAILY 01/01/16 [History] Sitagliptin Phosphate [Januvia] 50 mg PO DAILY 01/01/16 [History] Donepezil HCl [Aricept] 5 mg PO BID 07/13/16 [History] Metoprolol XL (24 HR) Succ [Toprol Xl] 50 mg PO DAILY 04/17/18 [History] Atorvastatin Calcium [Lipitor] 20 mg PO DAILY 11/11/18 [History] Clopidogrel [Plavix] 75 mg PO DAILY 11/11/18 [History] Losartan [Cozaar] 50 mg PO DAILY 11/11/18 [History] Acetaminophen/Butalbital/Caffe [Fioricet] 1 each PO Q4H tablet 11/16/18 [Rx] Bacitracin OINT [Ak-Tracin] 1 appl TP BID tube 11/16/18 [Rx] Erythromycin OPTH Oint 1 appl LEFT EYE BID tube 11/16/18 [Rx] Gabapentin [Neurontin] 300 mg PO TID 20 Days #60 capsule 11/16/18 [Rx] amLODIPine [Norvasc] 10 mg PO DAILY #0 11/16/18 [Rx] valACYclovir [Valtrex] 1,000 mg PO TID 9 Days #27 tablet 11/16/18 [Rx] Allergies/Adverse Reactions: Allergy/AdvReac Type Severity Reaction Status Date / Time lisinopril AdvReac Cough Verified 11/09/18 17:07 - Respiratory Orders Smoking Cessation: Smoking cessation has been advised. For more information, call the [place] Tobacco Quit Line at 3-184-BAKZ-NOW. - Lab Orders Lab Orders: Other (include drug levels w/frequency) (BMP in 1 week) - Ancillary Orders May use pressure relief devices daily prn - Advance Directives Code Status: Full Code - Mobility Orders Ambulate (per PT) - Rehabiliation Orders Rehab Orders: ROM Exercises, Evaluation for Physical Therapy, Evaluation for Occupational Therapy - Treatments Skin tear care topically daily PRN per policy, May check for fecal impaction rectally daily PRN, Fleet enema rectally every other day PRN cleansing purposes - Diet Orders No Concentrated Sweets CERTIFICATION: I certify that the transfer of the above named patient to an Extended Care Facility is necessary for the continuing treatment of the diagnosis listed. The above information is true and accurate reflection of patient's current condition. Confidential - Redisclosure prohibited without a patient's written consent.
[2018-11-16] MEDS ORDERED: valACYclovir 500 MG TABLET PO SCH (15:00)
== END 2018-11-16 14:49 | DRG 125 ==
LOC: EMEROOARM 07:07 → 3NENU 07:07 → SUATTDRO 16:46 → 3NENU 11-12 06:07
PROVIDERS: ADMIT Internal Medicine; ATTEND Internal Medicine